=== PATIENT | male | born 1925 | race Caucasian/White ===

== ENCOUNTER 2016-08-05 21:56 | Inpatient (IN) | payer OTHER, MEDICARE ==
[~2016-08-05] VITALS: Ht 175.3 cm; Wt 43.5 kg
--- NOTE | 2016-08-05 22:08 | ED NEURO DEFICIT/STROKE ---
History of Present Illness General Chief Complaint: Neuro Symptoms/ Deficit Stated Complaint: BIBA STROKE?? Source: patient, family, EMS Exam Limitations: clinical condition, confusion Vital Signs & Intake/Output Vital Signs & Intake/Output Vital Signs Date Time Temp Pulse Resp B/P B/P Pulse O2 O2 Flow FiO2 Mean Ox Delivery Rate 08/06 0036 98.0 65 20 170/100 94 Room Air 08/05 2337 73 20 174/93 92 Room Air 08/05 2301 67 157/84 08/05 2255 98.1 67 20 157/84 08/05 2231 98.1 75 20 188/94 97 Room Air ED Intake and Output 08/06 0000 08/05 1200 Intake Total 0 Output Total Balance 0 Intake, Oral 0 Patient 96 lb Weight Weight Estimated Measurement Method SEE TRIAGE (BECKI LAI,JEANINE) Allergies Coded Allergies: No Known Allergies (08/05/16) Reconcile Medications Apixaban (Eliquis) 2.5 MG TABLET 2.5 MG PO BID AFIB Aspirin (Aspirin*) 81 MG TAB.CHEW 81 MG PO DAILY HEART Atorvastatin Calcium 80 MG TABLET 80 MG PO 1700 HEART Lisinopril 20 MG TABLET 20 MG PO DAILY HTN Triage Nurses Notes Reviewed? yes Onset: Abrupt Duration: last known well yesterday Timing: single episode today Severity: mild, moderate New Weakness: LUE, right facial HPI: This is an 89-year-old male with h/o HTN, afib (not anticoagulated), right facial nerve palsy who presents from home by EMS for chief complaint of multiple falls. According to EMS they got a call for a lift assist. EMS reported that he slipped out of bed and his was unable to help him up. When they went to lift him up they noticed Left sided weakness. They wanted to transport the hospital but the patient was refusing. We don't know how long the weakness has been present for. He is awake and alert but oriented only 1. Patient transported to the hospital. C-collar placed in the field. Patient found to be hypertensive. History taking is limited as he is confused. He thinks it is 2009. His at bedside states that his face looks different from baseline. Past History Travel History Traveled to [place] past 21 day No Medical History Any Pertinent Medical History? see below for history Neurological: dementia Cardiovascular: hypertension Psychiatric: anxiety, AGITATION Endocrine: NIDDM Surgical History Surgical History: TUMOR REMOVED LEFT SIDE OF FACE - MELANOMA Psychosocial History Who do you live with Spouse What is your primary language [place] Tobacco Use: Quit >30 days ago ETOH Use: denies use Family History Hx Contributory? No Review of Systems Review of Systems Constitutional: Reports: weakness. EENTM: Reports: no symptoms. Respiratory: Denies: cough, short of breath. Cardiovascular: Denies: chest pain, palpitations. GI: Denies: abdominal pain. Genitourinary: Denies: discharge. Musculoskeletal: Reports: no symptoms. Skin: Reports: no symptoms. Neurological/Psychological: Reports: weakness. Hematologic/Endocrine: Denies: bruising, bleeding, polyuria, polydipsia. Immunologic/Allergic: Reports: no symptoms. All Other Systems: Reviewed and Negative Physical Exam Physical Exam General Appearance: well developed/nourished, alert, awake, mild distress, moderate distress Head: atraumatic Eyes: Bilateral: PERRL. Ears, Nose, Throat: normal ENT inspection, hearing grossly normal Neck: normal inspection, supple, full range of motion Respiratory: normal breath sounds, chest non-tender, no respiratory distress Cardiovascular: irregularly irregular Peripheral Pulses: 2+ radial (R), 2+ radial (L) Gastrointestinal: soft, non-tender Extremities: LEFT ARM ABRASIONS, 4/5 STRENTH LEFT ARM AND LEG RIGHT ARM ABD LEG 5/5 STRENGTH Psychiatric: awake, alert Cranial Nerves: normal hearing, facial asymmetry (RIGHT CHRONIC DROOP) Coordination/Gait: ABN nose to finger (L), GAIT NOT TESTED Motor/Sensory: motor deficit Core Measures CVA/TIA Diagnosis: Yes NIH Stroke Scale: Total 4 Date Last Known Well: 08/04/16 Neurological S/S of CVA: Weakness of Limb Symptom Start Date: 08/05/16 Severe Sepsis Present: No Septic Shock Present: No Progress Differential Diagnosis: intracranial Hem., intracranial mass/tumor, seizure disorder, stroke, tia Plan of Care: Orders Procedure Date/time Status Consistent Carbohydrate 1 08/06 B Active Patient Data 08/06 0049 Active Patient Data 08/06 16 Active Code Status 08/06 0011 Active Admit to inpatient 08/05 2357 Active Vital Signs 08/05 2357 Active URINALYSIS 08/05 2206 Active TROPONIN LEVEL 08/05 2206 Complete PARTIAL THROMBOPLASTIN TIME 08/05 2206 Complete PROTHROMBIN TIME 08/05 2206 Complete COMPREHENSIVE METABOLIC PANEL 08/05 2206 Complete CREATINE PHOSPHOKINASE 08/05 2206 Complete CBC WITHOUT DIFFERENTIAL 08/05 2206 Complete EKG 08/05 2206 Active TYPE & SCREEN (NOT X-MATCH) 08/05 2206 Complete Current Medications Sig/Reji Start time Last Medication Dose Stop Time Status Admin Labetalol HCl 10 MG ONCE ONE 08/06 99 UNVr (Trandate) 08/06 100 Laboratory Tests 08/05/162299: Anion Gap 11, Estimated GFR > 60, BUN/Creatinine Ratio 22.0, Glucose 129 H, Calcium 8.8, Total Bilirubin 0.8, AST 19, ALT 26, Alkaline Phosphatase 67, Creatine Kinase 59, Troponin I 0.02, Total Protein 6.6, Albumin 3.5, Globulin 3.1, Albumin/Globulin Ratio 1.1 08/05/162214: PT 12.5, INR 1.19 H, APTT 35, CBC w Diff NO MAN DIFF REQ, RBC 4.32 L, MCV 98.9 H, MCH 31.7 H, RDW 16.2 H, MPV 8.8, Gran % 56.9, Lymphocytes % 30.1, Monocytes % 10.3 H, Eosinophils % 2.4, Basophils % 0.3, Absolute Granulocytes 5.5, Absolute Lymphocytes 2.9, Absolute Monocytes 1.0 H, Absolute Eosinophils 0.2, Absolute Basophils 0, PUBS MCHC 32.0 L labs, ekg, head ct ordered. iv labetalol, aspirin ordered. (BECKI LAI,JEANINE) Diagnostic Imaging: Viewed by Me: Radiology Read, CT Scan. Discussed w/RAD: Radiology Read, CT Scan. Radiology Impression: PATIENT: KRISTY ROLAND PRESENT AGE: 89 PATIENT ACCOUNT NO: [id number] : [birth year] LOCATION: [facility] ORDERING PHYSICIAN: JEANINE JAUREGUI MD SERVICE DATE: 08/05/16 EXAM TYPE: CAT - CT CERV SPINE WO IV CONTRAST; CT HEAD WO IV CONTRAST EXAMINATION: CT HEAD WITHOUT CONTRAST CLINICAL INFORMATION: Acute stroke , recent fall COMPARISON: [address] scan TECHNIQUE: Contiguous axial imaging was performed from the skull base to vertex without intravenous administration of contrast. In addition , helical noncontrast CT imaging was acquired through the cervical spine and source images were reviewed along with axial reconstructions and sagittal and coronal MPRs. DLP: 1048.44 mGy-cm. FINDINGS: CT HEAD: Metallic density along the right orbit causes streak artifact, somewhat limiting evaluation. There is moderate brain volume loss with associated dilatation of CSF space, age appropriate. There is a left cerebellar encephalomalacia, similar to the prior exam and as the result of an old infarct. There is no evidence of acute intracranial hemorrhage or territorial infarction. No midline shift is seen. Mirza to white matter differentiation is well preserved. No extra-axial fluid collections are identified. The ventricles are normal in size. Patchy areas of chronic small vessel disease noted in the subcortical white matter. The osseous structures and soft tissues are normal. The mastoid air cells are well aerated. Soft tissue density within the left maxillary sinus, representing a mucous retention cyst. CT CERVICAL SPINE: There are advanced multilevel degenerative changes of cervical spine with involvement of the intervertebral disc spaces, facet joints and uncovertebral joints. Narrowing of intervertebral disc spaces seen at C3-C4 through T2-T3 levels. Anterior and posterior degenerative osteophytosis seen, impinging upon the lateral neural foramen at multiple levels. There is coarsening of bony trabeculae of C2 and odontoid process, a chronic finding. There is no acute fracture or dislocation of the cervical spine. The paraspinal soft tissues are unremarkable. The visualized lung apex is are clear. IMPRESSION: 1. No acute intracranial hemorrhage or sign of acute territorial ischemia. 2. Advanced degenerative changes of cervical spine without evidence of acute fracture or dislocation. The findings were reported to the ordering physician, Dr. Jauregui at 10:37 PM on 08/05/2016. DICTATED BY: MIKE ZALDIVAR MD DATE/TIME DICTATED:08/05/162225 [employer] SUPERVISOR:NILAM DATE/TIME TRANSCRIBED:08/05/162225 CONFIDENTIAL, DO NOT COPY WITHOUT APPROPRIATE AUTHORIZATION. <Electronically signed in Other Vendor System> SIGNED BY: MIKE ZALDIVAR MD 08/05/162241 CXR Impression: no acute abnormality Initial ED EKG: AFIB Prior EKG: unchanged Departure Departure Time of Disposition: 2356 Disposition: STILL A PATIENT Condition: Stable Clinical Impression Primary Impression: Hypertension Secondary Impressions: Ataxic gait, Atrial fibrillation, CVA (cerebrovascular accident due to intracerebral hemorrhage), Left-sided weakness Referrals: LAMONT CERVANTES MD Departure Forms: Customer Survey General Discharge Information Prescriptions: Current Visit Scripts Apixaban (Eliquis) 2.5 MG PO BID #60 Atorvastatin Calcium 80 MG PO 1700 #30 Lisinopril 20 MG PO DAILY #30 Aspirin (Aspirin*) 81 MG PO DAILY #30 Admission Note Spoke With: BRYAN CHE MD Documentation of Exam: Documentation of any treatments & extenuating circumstances including Concerns Regarding Discharge (functional status, medication knowledge or non-compliance, living conditions, etc.) that warrant an admission rather than observation: [ TELE MONITOR, NEURO CHECKS, NEUROLOGY CONSULTATION, MONITOR BP, PHYSICAL THERAPY EVALUATION,] Critical Care Note Critical Care Note Critical Care Time: 30-74 min
--- NOTE | 2016-08-05 22:32 | NUR ---
PT BOBA FROM HOME S/P FALL AND NEW ONSET RIGHT SIDED FACIAL DROP AND LEFT ARM WEAKNESS. PER SHE IS NOT AWARE OF THE SPECIFIC TIME OF THE ONSET OF THIS SYMPTOMS. PT IS NOTED TO HAVE LEFT LOWER ARM SKIN TEAR AND LEFT HAND SKIN TEAR. PT IS POOR HISTORIAN SECONDARY TO DEMENTIA. ON ARRIVAL HE WAS PLACED ON CARDIAC MONITORING AND VS WERE OBTAINED AND NOTED TO BE HYPERTENSIVE AT 188/94 MANUALLY. A SECOND IV WAS ESTABLISHED AND TRANSFERED TO CT SCAN. PT ARRIVED WITH C COLLAR.
[2016-08-05 22:33] LABS: ABSOLUTE BASOPHIL COUNT 0 /CUMM (0.0-0.2); ABSOLUTE EOSINOPHIL COUNT 0.2 /CUMM (0.0-0.7); ABSOLUTE GRANULOCYTE CT 5.5 /CUMM (1.4-6.5); ABSOLUTE LYMPH COUNT 2.9 /CUMM (1.2-3.4); BASOPHIL % 0.3 % (0.0-2.0); EOSINOPHIL % 2.4 % (0-5); GRANULOCYTE % 56.9 % (42.2-75.2); HEMATOCRIT 42.8 % (42-52); MEAN CORPUSCULAR HGB 31.7 PG (27.0-31.0); MEAN CORPUSCULAR VOLUME 98.9 FL (80.0-94.0); MEAN PLATELET VOLUME 8.8 FL (7.4-10.4); PLATELET COUNT 188 /CUMM (130-400); RBC DISTRIBUTION WIDTH 16.2 % (11.5-14.5); RED BLOOD CELL CT 4.32 /CUMM (4.70-6.10); WHITE BLOOD CELL COUNT 9.7 /CUMM (4.8-10.8)
[2016-08-05 22:42] LABS: PT 12.5 SEC (9.4-12.5); PTT 35 SEC (25-37)
--- NOTE | 2016-08-05 22:42 | CT SCAN REPORT ---
EXAMINATION: CT HEAD WITHOUT CONTRAST CLINICAL INFORMATION: Acute stroke , recent fall COMPARISON: 10/14/[address] scan TECHNIQUE: Contiguous axial imaging was performed from the skull base to vertex without intravenous administration of contrast. In addition, helical noncontrast CT imaging was acquired through the cervical spine and source images were reviewed along with axial reconstructions and sagittal and coronal MPRs. DLP: 1048.44 mGy-cm. FINDINGS: CT HEAD: Metallic density along the right orbit causes streak artifact, somewhat limiting evaluation. There is moderate brain volume loss with associated dilatation of CSF space, age appropriate. There is a left cerebellar encephalomalacia, similar to the prior exam and as the result of an old infarct. There is no evidence of acute intracranial hemorrhage or territorial infarction. No midline shift is seen. Mirza to white matter differentiation is well preserved. No extra-axial fluid collections are identified. The ventricles are normal in size. Patchy areas of chronic small vessel disease noted in the subcortical white matter. The osseous structures and soft tissues are normal. The mastoid air cells are well aerated. Soft tissue density within the left maxillary sinus, representing a mucous retention cyst. CT CERVICAL SPINE: There are advanced multilevel degenerative changes of cervical spine with involvement of the intervertebral disc spaces, facet joints and uncovertebral joints. Narrowing of intervertebral disc spaces seen at C3-C4 through T2-T3 levels. Anterior and posterior degenerative osteophytosis seen, impinging upon the lateral neural foramen at multiple levels. There is coarsening of bony trabeculae of C2 and odontoid process, a chronic finding. There is no acute fracture or dislocation of the cervical spine. The paraspinal soft tissues are unremarkable. The visualized lung apex is are clear. IMPRESSION: 1. No acute intracranial hemorrhage or sign of acute territorial ischemia. 2. Advanced degenerative changes of cervical spine without evidence of acute fracture or dislocation. The findings were reported to the ordering physician, Dr. Jauregui at 10:37 PM on 08/05/2016.
--- NOTE | 2016-08-05 23:03 | NUR ---
SST REDRAWN AND SENT
--- NOTE | 2016-08-05 23:19 | RADIOLOGY REPORT ---
EXAMINATION: XR PORTABLE CHEST CLINICAL INFORMATION: Multiple falls at home. COMPARISON: Portable chest x-ray 03/27/2015. TECHNIQUE: Portable frontal view of the chest was obtained. FINDINGS: The lungs are well-expanded and clear without focal airspace consolidation. No pleural effusions or pneumothoraces are identified. Cardiomediastinal contours are stable. Soft tissues are unremarkable. No acute osseous abnormality is identified. IMPRESSION: No acute pulmonary process.
--- NOTE | 2016-08-05 23:47 | NUR ---
DR CONNELL IN TO REVIEW POC. ANTICIPATE ADMISSION.
--- NOTE | 2016-08-06 | NUR ---
PT ABLE TO SWALLOW SMALL SIPS OF WATER. PT HAVING DIFFICULTY HOLDING CUP AND NEEDED INSTRUCTION TO PUT CUP TO MOUTH, BUT ABLE TO SWALLOW W/O DIFFICULTY. GIVEN ASA PER EMAR. WENT HOME FOR THE NIGHT. UNABLE TO RECONCILE MEDS AT THIS TIME, STATES HE TAKES 1 BP MED IN THE AM, UNSURE OF THE NAME.
--- NOTE | 2016-08-06 00:55 | NUR ---
MEDICATED WITH ADDITIONAL IVP LABETALOL FOR MANUAL BP 170/100.
--- NOTE | 2016-08-06 01:12 | NUR ---
HOUSESTAFF IN FOR EVAL.
--- NOTE | 2016-08-06 02:01 | History & Physical ---
HUBER LAI,[facility] 08/06/16 0200: General Information and HPI Statement: I have seen and personally examined KRISTY ALAS and documented this H&P. The patient is a 89 year old M who presented with a patient stated chief complaint of [weakness]. Source of Information: patient, old records Exam Limitations: dementia History of Present Illness: Mr. 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 History was obtained from EMS record, patient slipped out of bed and EMS was called by his to help lift him up since she was unable to lift him alone, when they lift him up they noticed Left sided weakness and was brought to ED for evaluation. Patient was alert not orianted x1, denied chest pain, abdominal pain cough. Allergies/Medications Allergies: Coded Allergies: No Known Allergies (08/05/16) Past History Travel History Traveled to [place] past 21 day No Medical History Neurological: dementia Cardiovascular: hypertension Psychiatric: anxiety, AGITATION Endocrine: NIDDM Surgical History Surgical History: TUMOR REMOVED LEFT SIDE OF FACE - MELANOMA Past Family/Social History Psychosocial History ETOH Use: denies use Review of Systems Review of Systems Constitutional: Reports: see HPI. Exam & Diagnostic Data Last 24 Hrs of Vital Signs/I&O Vital Signs Date Time Temp Pulse Resp B/P B/P Pulse O2 O2 Flow FiO2 Mean Ox Delivery Rate 08/06 0326 97.9 81 20 160/80 98 Room Air 08/06 0230 98.2 66 20 160/80 96 Room Air 08/06 0133 64 152/78 08/06 0056 98.0 65 20 170/100 08/06 0036 98.0 65 20 170/100 94 Room Air 08/05 2337 73 20 174/93 92 Room Air 08/05 2301 67 157/84 08/05 2255 98.1 67 20 157/84 08/05 2231 98.1 75 20 188/94 97 Room Air Intake & Output 08/06 0800 / 0000 08/05 1600 Intake Total 0 Output Total Balance 0 Intake, Oral 0 Patient 43.545 kg Weight Weight Estimated Measurement Method Physical Exam General Appearance Alert, Cooperative, No Acute Distress Skin multiple skin lesions over the face Multiple skin laceration over the left UE Skin Temp/Moisture Exam: Warm/Dry HEENT Atraumatic, PERRLA, EOMI, Mucous Membr. moist/pink Neck Supple, No JVD Lymphatic no cervical lymphadenopathy Cardiovascular Normal S1, Normal S2, irregular irregular Systolic murmur 3/5 with max intensity over left 5th intercosal space mid clavicular line Lungs Clear to Auscultation, Normal Air Movement Abdomen Normal Bowel Sounds, Soft, No Tenderness Neurological Normal Speech, Strength at 5/5 X4 Ext, Normal Tone, Sensation Intact, Reflexes 2+, Chronic right facial droop , left arm difficlty raising arm over head on active and passive motions Extremities No Clubbing, No Cyanosis, No Edema, Normal Pulses Assessment/Plan Assessment: Mr. 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 On admission -Vital signs temperature 98.1, pulse 75, blood pressure 188/94, respiratory rate 20 with saturation 97% room air -Labs significant for H&H 15.7/42.8, BUN/creatinine 22/1, troponin 0.02 Images -CT head, cervical spine IMPRESSION: 1. No acute intracranial hemorrhage or sign of acute territorial ischemia. 2. Advanced degenerative changes of cervical spine without evidence of acute fracture or dislocation. -Chest x-ray IMPRESSION: No acute pulmonary process. Problem list #Mechanical fall #Left arm weakness, difficulty raising arm overhead by active and passive motions #Hypertension, hyperlipidemia, diabetes #Atrial fibrillation not on anticoagulation #Chronic right facial droop as a complication of surgical resection of squamous cell cancer Plan -Admit to telemetry for close monitoring -CT head and cervical spine ruled out acute intracranial pathology -Continue aspirin 81 mg daily, statin 40 mg daily -Obtain lipid profile -Obtain hemoglobin A1c -Serial troponin and EKG -Obtain UA and urine culture -Obtain blood culture -Consider left shoulder x-ray -Patient received 2 doses of labetalol 10 mg IV for blood pressure 188/94 on presentation -Monitor blood pressure and heart rate -We will obtain full history from patient's in a.m. including reconciled medication (patient is taking only one medication for blood pressure) -Patient has history of atrial fibrillation not on anticoagulation for history of multiple falls -Swallowing evaluation, PT, OT -DVT prophylaxis Lovenox -Code DNR/DNI -Nothing by mouth for swallowing evaluation As Ranked By This Provider Problem List: 1. ATRIAL FIBRILATION 2. Benign essential hypertension 3. Dementia 4. Left-sided weakness Core Measures/Miscellaneous Acute Coronary Syndrome ACS Diagnosis: No Cerebrovascular Accident CVA/TIA Diagnosis: No Congestive Heart Failure CHF Diagnosis: No Venous Thromboembolism VTE Risk Factors: Age > 40 No [facility] VTE prophylaxis d/t: No contraindications No VTE Pharm Prophylaxis d/t: No contraindications VTE Diagnosis: No VTE Type: NONE VTE Confirmed by (Test): NONE Severe Sepsis Severe Sepsis Present: No Septic Shock Septic Shock Present: No Miscellaneous Documentation Attending Case Discussed With: BRYAN CHE MD Primary Care Physician: UNKNOWN Patient sees these Specialists None Level of Patient Care: Telemetry BRYAN CHE 08/06/16 0503: Attending MD Review Statement Attending Statement Attending MD Statement: examined this patient, discuss w/resident/PA/TEACHER ASSOCIATE, agreed w/resident/PA/TEACHER ASSOCIATE, reviewed EMR data (avail), reviewed images, amended to note Attending Assessment/Plan: CC: S/P fall PMH: DM, HTN, HLD, A. fib, squamous cell carcinoma around cheek S/P excision resulting in the right facial nerve injury and policy, dementia History is limited, secondary to patient's dementia and sundowning, family not bedside. Patient's called in EMS for Marti lift as patient fell down from bed.. When EMS arrived they noticed left upper extremity weakness so they suggested to transfer patient to ER, stroke alert was called. In ER patient had local left upper extremity minimal weakness so we were called for admission. This change was different according to . Vitals: Unremarkable except mildly elevated blood pressure of 170/100 patient received 2 doses of labetalol in ER On exam: Patient is not cooperative for any examination and shouting not to touch him. On gross neurological examination patient has facial pass he on right , strength in bilateral lower extremity intact and right upper extremity, with a 4+/5 strength, in proximal muscle group in left upper extremity, distal muscle strength 5/5 abdomen soft, CVS: S1-S2 irregular, systolic murmur parasternal, RS clear to auscultate bilaterally. No pedal edema. Labs: WBC 9.7, hemoglobin 13.7, hematocrit 42.8, BUN 22, creatinine 1.0, glucose 129, LFT unremarkable, troponin 0.02, INR 1.19 CT cervical spine without IV contrast, CT head without IV contrast: 1. No acute intracranial hemorrhage or sign of acute territorial ischemia. 2. Advanced degenerative changes of cervical spine without evidence of acute fracture or dislocation. CXR: Unremarkable A and P + S/P fall : Unclear etiology, probably accidental, recurrent falls + Left upper extremity minimal weakness: CT head unremarkable, probably local nerve injury versus shoulder pathology. Rule out TIA + HTN : elevated BP + Rule out UTI - Admitted to telemetry - Continue to monitor on telemetry - Serial neuro checks every 6 hours - Continue aspirin and statin - OT PT evaluation in a.m. - Bedside swallow eval - Official swallow in a.m. - Continue home medications - Reconfirm history from in a.m., before obtaining carotid Doppler or MRI for further workup if TIA suspected, as no clear history is available regarding left upper extremity weakness, duration, onset. - Evaluation for short-term rehabilitation, multiple falls at home. GISELA RECINOS 08/06/16 1024: Resident Review Statement Resident Statement: examined this patient, discussed with cisco certified internetwork expert, agreed with cisco certified internetwork expert, discussed with family, reviewed EMR data (avail), amended to note Other Findings: History, vitals, examination, labs and imaging as documented by cisco certified internetwork expert above Problem list #imbalance/ frequent fall of unclear etiology and duration (He was admitted for same problem in the past) #Difficulty raising arm overhead with strong hand insurance job titles which could be 2/2 neurological cause vs joint disease #Hypertension, hyperlipidemia, diabetes #Atrial fibrillation not on anticoagulation #Chronic right facial droop as a complication of surgical resection of squamous cell cancer Plan -Admit to telemetry for close monitoring -Continue aspirin 81 mg daily, statin 40 mg daily -Swallow evaluation -Consider left shoulder x-ray -Monitor blood pressure -Please contact patient's in a.m. for detailed history and for reconciled medications (He is demented we were unable to confirm medications) -Patient has history of atrial fibrillation not on anticoagulation for history of multiple falls -Swallowing evaluation, PT, OT -DVT prophylaxis SC lovenox -Code DNR/DNI -Nothing by mouth for swallowing evaluation
--- NOTE | 2016-08-06 02:36 | NUR ---
ATTEMPTED TO CALL REPORT, NURSE WILL CALL BACK.
--- NOTE | 2016-08-06 03:04 | NUR ---
REPORT TO ROHIT WARD ON [address].
[2016-08-06 03:26] VITALS: BP 160/80
--- NOTE | 2016-08-06 05:27 | Admission Certification ---
Admission Certification Certification Statement - As attending physician, I certify that at the time of - admission, based on clinical presentation, severity of - symptoms, need for further diagnostic testing and - therapeutic interventions, and risk of adverse outcomes - without in-hospital treatment, in my clinical assessment, - this patient requires an acute hospital stay for a minimum - of two nights or longer. I have also considered psychsocial - factors such as support system, advanced age, financial - issues, cognitive issues, and failed out-patient treatments, - past re-admission history, safety of patient, and lack of - compliance as applicable. Specific rationale supporting this admission is: Fall
[2016-08-06 09:34] LABS: ABSOLUTE BASOPHIL COUNT 0 /CUMM (0.0-0.2); ABSOLUTE EOSINOPHIL COUNT 0.2 /CUMM (0.0-0.7); ABSOLUTE GRANULOCYTE CT 5.4 /CUMM (1.4-6.5); ABSOLUTE LYMPH COUNT 1.7 /CUMM (1.2-3.4); ABSOLUTE MONOCYTE COUNT 0.7 /CUMM (0.10-0.60); BASOPHIL % 0.5 % (0.0-2.0); EOSINOPHIL % 2.1 % (0-5); GRANULOCYTE % 67.6 % (42.2-75.2); HEMATOCRIT 39.1 % (42-52); MEAN CORPUSCULAR HGB 32.1 PG (27.0-31.0); MEAN CORPUSCULAR HGB CONC 32.7 G/DL (33.0-37.0); MEAN CORPUSCULAR VOLUME 98.1 FL (80.0-94.0); MEAN PLATELET VOLUME 8.9 FL (7.4-10.4); PLATELET COUNT 150 /CUMM (130-400); RBC DISTRIBUTION WIDTH 16.2 % (11.5-14.5); RED BLOOD CELL CT 3.98 /CUMM (4.70-6.10)
[2016-08-06 11:13] VITALS: BP 154/74
--- NOTE | 2016-08-06 11:34 | PN- Att Addend ---
Attending Addendum Attending Brief Note Patient seen and examined. Resting comfortably not in acute distress. He is alert and oriented 3. He is unaware however he came to the hospital. He denies any pain. Denies chest pain or palpitations. Denies shortness of breath. He admits to falling on and off at home. reports that patient fell at home. She reports that his gait is unsteady but he refuses to use a walker. She reports that he has fallen on several occasions in the past. Vital Signs Date Time Temp Pulse Resp B/P B/P Pulse O2 O2 Flow FiO2 Mean Ox Delivery Rate 08/06 1113 98.1 62 95 154/74 Room Air 08/06 0326 97.9 81 20 160/80 98 Room Air 08/06 0230 98.2 66 20 160/80 96 Room Air 08/06 0133 64 152/78 05/ 0056 98.0 65 20 170/100 05/ 0036 98.0 65 20 170/100 94 Room Air 08/05 2337 73 20 174/93 92 Room Air 08/05 2301 67 157/84 05/ 2255 98.1 67 20 157/84 05/06 2231 98.1 75 20 188/94 97 Room Air Gen. appearance: Elderly male, not in acute distress. Heart: S1-S2 irregular with 3/6 systolic normal. Neck: Right carotid bruit. Lungs: Good general articulately to auscultation Abdomen: Soft, nontender with normal bowel sounds Extremities: No pedal edema Skin: Intact extremities: No pedal edema. Neurologic: He is alert and attentive 3. Power is 5 over 5 bilateral lower extremities and right upper extremities. Range of motion of the left upper extremity is limited as the shoulder. Range of motion is limited even with passive movement. Patient is unable to recall this is new for him. His is of the impression that this is new for the patient. She reports that he fell on that side. He has an extensive right facial droop which is chronic. Laboratory Tests 08/06/16 0930: Urine Color Pending, Urine Clarity Pending, Urine pH Pending, Ur Specific [place] Pending, Urine Protein Pending, Urine Ketones Pending, Urine Nitrite Pending, Urine Bilirubin Pending, Urine Urobilinogen Pending, Ur Leukocyte Esterase Pending, Ur Microscopic Pending, Urine Hemoglobin Pending, Urine Glucose Pending 08/06/16 0735: Anion Gap 7, Estimated GFR > 60, BUN/Creatinine Ratio 22.2, CBC w Diff NO MAN DIFF REQ, RBC 3.98 L, MCV 98.1 H, MCH 32.1 H, RDW 16.2 H, MPV 8.9, Gran % 67.6, Lymphocytes % 21.1, Monocytes % 8.7, Eosinophils % 2.1, Basophils % 0.5, Absolute Granulocytes 5.4, Absolute Lymphocytes 1.7, Absolute Monocytes 0.7 H, Absolute Eosinophils 0.2, Absolute Basophils 0, PUBS MCHC 32.7 L 08/05/16 2300: Anion Gap 11, Estimated GFR > 60, BUN/Creatinine Ratio 22.0, Glucose 129 H, Calcium 8.8, Total Bilirubin 0.8, AST 19, ALT 26, Alkaline Phosphatase 67, Creatine Kinase 59, Troponin I 0.02, Total Protein 6.6, Albumin 3.5, Globulin 3.1, Albumin/Globulin Ratio 1.1 08/05/16 2215: PT 12.5, INR 1.19 H, APTT 35, CBC w Diff NO MAN DIFF REQ, RBC 4.32 L, MCV 98.9 H, MCH 31.7 H, RDW 16.2 H, MPV 8.8, Gran % 56.9, Lymphocytes % 30.1, Monocytes % 10.3 H, Eosinophils % 2.4, Basophils % 0.3, Absolute Granulocytes 5.5, Absolute Lymphocytes 2.9, Absolute Monocytes 1.0 H, Absolute Eosinophils 0.2, Absolute Basophils 0, PUBS MCHC 32.0 L Microbiology 08/06 929 URINE ROUT: Urine Culture - RECD 08/06 0755 BLOOD: Blood Culture - RECD 08/06 0700 BLOOD: Blood Culture - RECD Problems: 1. Status post fall. 2. Left upper extremity weakness; query sequelae of trauma versus stroke. 3. Atrial fibrillation with sinus pause on overnight telemetry and bradycardia in 40s. 4. Uncontrolled hypertension. Plan: -Obtain MRI of the left shoulder to rule out traumatic injury. -Obtain carotid Dopplers, echocardiogram. -Follow-up neurology consultation. Physical therapy evaluation. -Confirmed Patient's home medication regimen with his . In the meantime begin patient on lisinopril 20 mg orally daily for blood pressure control. Monitor closely. -Cardiology evaluation due to the sinus pause noted overnight. Confirm his home med list to determine if he is on any rate control medications. -Awaiting swallow evaluation. Keep nothing by mouth for now. Continue aspirin, statin therapy. DVT prophylaxis with Lovenox.
--- NOTE | 2016-08-06 11:57 | NUR ---
ALEJANDRA IS AWARE OF 2 2.6 SECOND PAUSES. VVS, DOCUMENTED AND REPORTED
--- NOTE | 2016-08-06 14:13 | Cons- Neurology ---
General Information and HPI Consulting Request Date of Consult: 08/06/16 Requested By: BRYAN CHE MD History of Present Illness: History per chart. Patient then unreliable historian. 89-year-old male with history of dementia and multiple vascular risk factors including atrial fibrillation, not anticoagulated due to previous falls, admitted after having fallen from bed with his being unable to lift him. Left-sided weakness was noted. CAT scan of the brain on admission showed no acute abnormalities. 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 Home Smoking Status: Unknown If Ever Smoked ETOH Use: denies use Exam & Diagnostic Data Vital Signs and I&O Vital Signs Date Time Temp Pulse Resp B/P B/P Pulse O2 O2 Flow FiO2 Mean Ox Delivery Rate 08/06 1308 154/74 08/06 1113 98.1 62 95 154/74 Room Air 08/06 0326 97.9 81 20 160/80 98 Room Air 08/06 0230 98.2 66 20 160/80 96 Room Air 08/06 0133 64 152/78 08/06 0056 98.0 65 20 170/100 / 0036 98.0 65 20 170/100 94 Room Air 08/05 2337 73 20 174/93 92 Room Air 08/05 2301 67 157/84 08/05 2255 98.1 67 20 157/84 08/05 2231 98.1 75 20 188/94 97 Room Air Intake & Output 08/06 1600 08/06 0800 08/06 0000 Intake Total 0 Output Total 200 Balance -200 0 Intake, Oral 0 Output, Urine 200 Patient 96 lb Weight Weight Estimated Measurement Method Elderly, frail and asthenic looking white male in no acute distress. He was awake and alert. He could not tell me where he was or why he is here. He could not name the current president. Speech was fluent. There was ptosis O. D. (? Chronic). He was mildly dysarthric. Pupils were equal. Extraocular movements were full. He had a left hemiparesis. Babinski sign was present on the left. The plantar was flexor on the right. The gait was not evaluated. Assessment/Plan Assessment: #1 right hemispheric stroke suspect, not visible on initial CT. With history of atrial fibrillation, this may be embolic. 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 Recommendations: Patient should have formal swallow evaluation prior to initiation of oral feedings. He will need speech, physical and occupational therapy evaluations. DVT precautions should be put into place. For the time being we would use aspirin 81 mg. A statin should also be continued. In all likelihood, he will need a long term facility. Either a follow-up CT without contrast or MRI would be appropriate to clarify and document his presumed, ischemic infarct. Please feel free to call with any further questions. Consult Acknowledgment - Thank you for your consult request.
[2016-08-06 15:45] VITALS: BP 150/82
--- NOTE | 2016-08-06 16:06 | Cons- Cardiology ---
General Information and HPI Consulting Request Date of Consult: 08/06/16 Requested By: BRYAN CHE MD Reason for Consult: Bradycardia History of Present Illness: The patient is an 89-year-old male with history of diabetes mellitus, hypertension, hyperlipidemia, dementia, and atrial fibrillation who was brought in by ambulance after a mechanical fall. The patient is not anticoagulated for his atrial fibrillation because of frequent falls. The patient's diabetic and was unable to get up. EMS was called by his . Upon arrival, he was found to have left-sided weakness, and was brought to the emergency department for evaluation. He is admitted with concern for CVA secondary to left-sided weakness. CT scan of the head does not show any acute abnormality is. He is noted on telemetry to begin atrial fibrillation with episodes of slow ventricular rate. The heart rate drops into the 40s for prolonged periods, and occasionally into the high 30s. He is noted to have pauses up to 2-1/2 seconds. The patient is a poor historian secondary to dementia. He denies chest pain, palpitations, or shortness of breath. Further history is not obtainable. Blood pressure was noted to be elevated in the emergency department, and the patient was given IV labetalol 2 doses Allergies/Medications Allergies: Coded Allergies: No Known Allergies (08/05/16) Current Medications: Current Medications Sig/Reji Start time Last Medication Dose Route Stop Time Status Admin Acetaminophen 650 MG Q6P PRN 08/06 0200 AC PO Aspirin 81 MG DAILY 08/06 1000 AC 08/06 PO 1202 Aspirin 0 .STK-MED ONE 08/06 0002 DC PO Aspirin 325 MG ONCE ONE 08/05 2345 DC 05/ PO 08/05 2346 0000 Atorvastatin Calcium 40 MG 1700 / 1700 AC PO Enoxaparin Sodium 40 MG DAILY 08/07 1000 AC SC Labetalol HCl 10 MG ONCE ONE 08/06 0100 DC / IV 08/06 0101 0056 Labetalol HCl 10 MG ONCE ONE 08/05 2300 DC 05/ IV 08/05 2301 2255 Labetalol HCl 0 .STK-MED ONE 08/05 2300 DC IV Lisinopril 20 MG DAILY 08/06 1223 AC 08/06 PO 1308 Oxycodone/ 1 TAB Q6P PRN 08/06 0200 AC Acetaminophen PO Oxycodone/ 2 TAB Q12P PRN 08/06 0200 AC Acetaminophen PO Patient Medication 1 UNIT ONE NR 08/06 1300 DC Teaching ED 08/06 1330 Sodium Chloride 1,000 ML ONCE ONE 08/06 0615 CAN IV 08/06 1254 Review of Systems Review of Systems: No syncope. No chest pain. No shortness of breath. All other systems were reviewed, and were noted to be negative, however the patient is noted to be a poor historian. 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 Home Smoking Status: Unknown If Ever Smoked ETOH Use: denies use Exam & Diagnostic Data Vital Signs and I&O Vital Signs Date Time Temp Pulse Resp B/P B/P Pulse O2 O2 Flow FiO2 Mean Ox Delivery Rate 08/06 1545 97.4 61 20 150/82 97 Room Air 08/06 1308 154/74 08/06 1113 98.1 62 95 154/74 Room Air 08/06 0326 97.9 81 20 160/80 98 Room Air 08/06 0230 98.2 66 20 160/80 96 Room Air 08/06 0133 64 152/78 08/06 0056 98.0 65 20 170/100 05/07 0036 98.0 65 20 170/100 94 Room Air 08/05 2337 73 20 174/93 92 Room Air 08/05 2301 67 157/84 / 2255 98.1 67 20 157/84 08/05 2231 98.1 75 20 188/94 97 Room Air Intake & Output 08/06 1600 08/06 0800 08/06 0000 08/05 1600 08/05 0800 08/05 0000 Intake Total 300 0 Output Total 200 200 Balance 100 -200 0 Intake, Oral 300 0 Output, Urine 200 200 Patient 96 lb Weight Weight Estimated Measurement Method Physical Exam: Gen: The patient is confused but in no acute distress HEENT: Normal nose, ears, and oropharynx. Pupils equal bilaterally. Conjunctiva normal. Neck: Supple with no JVD, no masses, and no thyromegaly Lungs: Clear to auscultation with normal respiratory effort Heart: Irregularly irregular, S1, S2, 2/6 systolic murmur. No peripheral edema, 2+ pulses in the lower extremities bilaterally Abdomen: Soft, nontender, no masses. No hepatomegaly. No splenomegaly Extremities: No clubbing or cyanosis. Left upper and extremity weakness is noted. Skin: Normal skin turgor with no skin ulcers or lesions noted. Neuro: Cranial nerves intact. Sensation intact Psych: The patient is confused. Affect is depressed. Labs/Sammy Results: Laboratory Tests 08/06 08/06 0930 0735 Chemistry Sodium (137 - 145 mmol/L) 142 Potassium (3.5 - 5.1 mmol/L) 4.3 Chloride (98 - 107 mmol/L) 107 Carbon Dioxide (22 - 30 mmol/L) 28 Anion Gap (5 - 16) 7 BUN (9 - 20 mg/dL) 20 Creatinine (0.7 - 1.2 mg/dL) 0.9 Estimated GFR (>60 ml/min) > 60 BUN/Creatinine Ratio (7 - 25 %) 22.2 Hematology CBC w Diff NO MAN DIFF REQ WBC (4.8 - 10.8 /CUMM) 8.0 RBC (4.70 - 6.10 /CUMM) 3.98 L Hgb (14.0 - 18.0 G/DL) 12.8 L Hct (42 - 52 %) 39.1 L MCV (80.0 - 94.0 FL) 98.1 H MCH (27.0 - 31.0 PG) 32.1 H RDW (11.5 - 14.5 %) 16.2 H Plt Count (130 - 400 /CUMM) 150 MPV (7.4 - 10.4 FL) 8.9 Gran % (42.2 - 75.2 %) 67.6 Lymphocytes % (20.5 - 51.1 %) 21.1 Monocytes % (1.7 - 9.3 %) 8.7 Eosinophils % (0 - 5 %) 2.1 Basophils % (0.0 - 2.0 %) 0.5 Absolute Granulocytes (1.4 - 6.5 /CUMM) 5.4 Absolute Lymphocytes (1.2 - 3.4 /CUMM) 1.7 Absolute Monocytes (0.10 - 0.60 /CUMM) 0.7 H Absolute Eosinophils (0.0 - 0.7 /CUMM) 0.2 Absolute Basophils (0.0 - 0.2 /CUMM) 0 PUBS MCHC (33.0 - 37.0 G/DL) 32.7 L Urines Urine Color (YEL,AMB,STR) YEL Urine Clarity (CLEAR) CLEAR Urine pH (5.0 - 8.0) 6.5 Ur Specific [place] (1.001 - 1.035) 1.025 Urine Protein (NEG,<30 MG/DL) 30 H Urine Ketones (NEG) TRACE H Urine Nitrite (NEG) NEG Urine Bilirubin (NEG) NEG@ICTO Urine Urobilinogen (0.1 - 1.0 EU/dl) 0.2 Ur Leukocyte Esterase (NEG) NEG Ur Microscopic SEDIMENT EXAMINED Urine WBC (0 - 2 /HPF) 5-10 H Ur Epithelial Cells (NONE,FEW) FEW Urine Mucus (FEW,NONE) MANY H Urine Hemoglobin (NEG) NEG Urine Glucose (N MG/DL) NEG 08/05 08/05 2300 2215 Chemistry Sodium (137 - 145 mmol/L) 140 Potassium (3.5 - 5.1 mmol/L) 4.1 Chloride (98 - 107 mmol/L) 101 Carbon Dioxide (22 - 30 mmol/L) 28 Anion Gap (5 - 16) 11 BUN (9 - 20 mg/dL) 22 H Creatinine (0.7 - 1.2 mg/dL) 1.0 Estimated GFR (>60 ml/min) > 60 BUN/Creatinine Ratio (7 - 25 %) 22.0 Glucose (65 - 99 mg/dL) 129 H Calcium (8.4 - 10.2 mg/dL) 8.8 Total Bilirubin (0.2 - 1.3 mg/dL) 0.8 AST (17 - 59 U/L) 19 ALT (21 - 72 U/L) 26 Alkaline Phosphatase (< 127 U/L) 67 Creatine Kinase (55 - 170 U/L) 59 Troponin I (<0.11 ng/ml) 0.02 Total Protein (6.3 - 8.2 g/dL) 6.6 Albumin (3.5 - 5.0 g/dL) 3.5 Globulin (1.9 - 4.2 gm/dL) 3.1 Albumin/Globulin Ratio (1.1 - 2.2 %) 1.1 Coagulation PT (9.4 - 12.5 SEC) 12.5 INR (0.90 - 1.17) 1.19 H APTT (25 - 37 SEC) 35 Hematology CBC w Diff NO MAN DIFF REQ WBC (4.8 - 10.8 /CUMM) 9.7 RBC (4.70 - 6.10 /CUMM) 4.32 L Hgb (14.0 - 18.0 G/DL) 13.7 L Hct (42 - 52 %) 42.8 MCV (80.0 - 94.0 FL) 98.9 H MCH (27.0 - 31.0 PG) 31.7 H RDW (11.5 - 14.5 %) 16.2 H Plt Count (130 - 400 /CUMM) 188 MPV (7.4 - 10.4 FL) 8.8 Gran % (42.2 - 75.2 %) 56.9 Lymphocytes % (20.5 - 51.1 %) 30.1 Monocytes % (1.7 - 9.3 %) 10.3 H Eosinophils % (0 - 5 %) 2.4 Basophils % (0.0 - 2.0 %) 0.3 Absolute Granulocytes (1.4 - 6.5 /CUMM) 5.5 Absolute Lymphocytes (1.2 - 3.4 /CUMM) 2.9 Absolute Monocytes (0.10 - 0.60 /CUMM) 1.0 H Absolute Eosinophils (0.0 - 0.7 /CUMM) 0.2 Absolute Basophils (0.0 - 0.2 /CUMM) 0 PUBS MCHC (33.0 - 37.0 G/DL) 32.0 L Diagnostic Data EKG Results EKG tracing is independently reviewed, and reveals atrial fibrillation with ventricular response of 76, possible anterior infarct age undetermined CXR Results Negative Other Results Head CT: 1. No acute intracranial hemorrhage or sign of acute territorial ischemia. 2. Advanced degenerative changes of cervical spine without evidence of acute fracture or dislocation. The findings were reported to the ordering physician, Dr. Jauregui at 10:37 PM on 08/05/2016. Assessment/Plan Assessment/Plan Assessment: 1. Dementia 2. Chronic atrial fibrillation 3. Hypertension 4. Slow ventricular rate, possibly secondary to IV labetalol 5. Left-sided weakness, possible CVA Plan: * Monitor on telemetry * Avoid further doses of labetalol or other rate control medications given bradycardia * Given possible CVA, would allow blood pressure to be mildly elevated * Agree with aspirin as per neurology * The patient is not anticoagulated because of fall risk. * Continue statin Consult Acknowledgment - Thank you for your consult request.
--- NOTE | 2016-08-06 16:13 | ULTRASOUND REPORT ---
EXAMINATION: US DUPLEX CAROTID AND VERTEBRAL CLINICAL INFORMATION: Left-sided weakness and visual field defect/neglect. Question stroke. COMPARISON: None TECHNIQUE: Real-time ultrasound and Doppler techniques (integrating B-mode 2D vascular images, Doppler spectral analysis and color flow Doppler imaging) were utilized to interrogate the extracranial carotid and vertebral arteries bilaterally. The degree of stenosis determined by criteria similar to NASCET. FINDINGS: The right common carotid artery is patent. There is calcified and noncalcified plaque seen in the right carotid bulb, proximal ICA and ECA. Right common carotid artery peak systolic velocity is 60 cm/s and end-diastolic velocity 3.5 cm/s. There is decreased right ICA peak systolic velocity and end-diastolic velocity. There is a high resistance waveform in the right ICA with reversal of flow during diastole. Waveform is questionable for more distal right ICA stenosis. The right ECA is patent. Antegrade flow is seen in the right vertebral artery. The left common carotid artery is patent. There is calcified and noncalcified plaque seen at the left carotid bulb, left proximal ICA and ECA. Left common carotid peak systolic velocity is 62 cm/s and end-diastolic velocity 12 cm/s. Left ICA peak systolic velocity is 74 cm/s, end-diastolic velocity 23 cm/s suggestive of 0-49% left ICA stenosis. The left ICA waveform is normal. The left ECA is patent. Antegrade flow is seen in the left vertebral artery. IMPRESSION: Significant bilateral calcified and noncalcified plaque. There are decreased velocities and abnormal high resistance waveform in the right ICA questionable for more distal right ICA stenosis. Followup CTA or MRA should be considered. 0-49% left ICA stenosis.
[2016-08-07 00:31] VITALS: BP 138/50
--- NOTE | 2016-08-07 07:29 | PN- Housestaff ---
CHRIS LAI,ALEJANDRA 08/07/16 0728: Subjective Follow-up For: Weakness, left-sided Complaints: pt unable to provide hx Tele-Events Since Last Visit: Atrial fibrillation, with heart rate ranging from 60-89, some PVCs, 2.8 second pause overnight. Of note, he had couple of 2.6 second pauses yesterday as well. Subjective: I followed up and examined the patient today. He is resting comfortably in bed, not in distress. He seems to have a questionable "visual field defect/neglect of the left side" as he could hear my voice but did not turn towards me and was asking where I was speaking from today as well, just like yesterday. His was by the bedside, and explained that he often gets confused and has advanced dementia. Telemetry recordings as noted above, vitals have been otherwise stable, no overnight issues otherwise. Review of Systems Constitutional: Reports: see HPI. Objective Last 24 Hrs of Vital Signs/I&O Vital Signs Date Time Temp Pulse Resp B/P B/P Pulse O2 O2 Flow FiO2 Mean Ox Delivery Rate 08/07 1649 Room Air 08/07 1625 97.7 75 20 152/80 93 Room Air 08/07 1104 77 160/80 05/08 0730 98.1 88 20 158/68 98 Room Air 08/07 0031 98.5 83 20 138/50 93 05/08 0000 96 Room Air Intake & Output 08/07 1600 /08 0800 05/08 0000 Intake Total 30 Output Total 50 225 Balance -20 -225 Intake, Oral 30 Number 0 Bowel Movements Output, Urine 50 225 Patient 43.545 kg Weight Physical Exam General Appearance: Alert, Cooperative, No Acute Distress, not oriented, cachectic Other Physical Findings: Skin: dry/warm, intact Heart: S1-S2 irregular with 3/6 systolic murmur Neck: Right carotid bruit present Lungs: decreased breath sounds b/l Abdomen: Soft, nontender with normal bowel sounds Extremities: No pedal edema Neurologic: He is alert and attentive, Power is 5/5 b/l lower extremities and right upper extremities. Range of motion of the left upper extremity is limited as the shoulder. Range of motion is limited even with passive movement. Patient is unable to recall this is new for him. His is of the impression that this is new for the patient. She reports that he fell on left (same) side. He has an extensive right facial droop (which is chronic due to previous surgery that damaged his nerve per his ). Current Medications: Current Medications Sig/Reji Start time Last Medication Dose Route Stop Time Status Admin Acetaminophen 650 MG Q6P PRN 08/06 0200 AC PO Aspirin 81 MG DAILY 08/06 1000 AC 08/07 PO 1104 Atorvastatin Calcium 80 MG 1700 08/07 1700 AC PO Atorvastatin Calcium 40 MG 1700 08/06 1700 DC 08/06 PO 1621 Enoxaparin Sodium 40 MG DAILY 08/07 1000 AC 08/07 SC 1104 Lisinopril 20 MG DAILY 08/06 1223 AC 08/07 PO 1104 Oxycodone/ 1 TAB Q6P PRN 08/06 0200 AC Acetaminophen PO Oxycodone/ 2 TAB Q12P PRN 08/06 0200 AC Acetaminophen PO Last 24 Hrs of Lab/Sammy Results Last 24 Hrs of Labs/Mics: Laboratory Tests 08/07/16 0645: Anion Gap 9, Estimated GFR > 60, BUN/Creatinine Ratio 22.5, CBC w Diff NO MAN DIFF REQ, RBC 4.23 L, MCV 97.9 H, MCH 32.0 H, RDW 15.8 H, MPV 8.9, Gran % 75.0, Lymphocytes % 15.0 L, Monocytes % 8.8, Eosinophils % 1.0, Basophils % 0.2 , Absolute Granulocytes 7.3 H, Absolute Lymphocytes 1.5, Absolute Monocytes 0.9 H, Absolute Eosinophils 0.1, Absolute Basophils 0, PUBS MCHC 32.7 L Assessment/Plan Assessment: 89-year-old male with past medical history off hypertension, atrial fibrillation not on Coumadin due to repeated fall injuries, diabetes mellitus, hyperlipidemia , 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 EMS was called after he had fallen down and his could not get him back to his chair/bed. Initial history was limited as the patient has severe dementia and no family members were around, vitals in the ED showed blood pressure of 170/100 and he received 2 doses of labetalol. His vitals have been stable since then, but he did have a few episodes of pauses since yesterday. He is currently on telemetry floor for the following issues: #Acute ischemic stroke Patient's clinical condition was highly suspicious for right hemispheric stroke although initial CT did not visualize any bleeding/any acute pathologies. Neurology was consulted who suggested getting an MRI of brain. Doppler ultrasound of carotid arteries earlier done had revealed stenosis of bilateral carotid arteries. MRA was thus ordered as well. -Continue telemetry monitoring -Continue serial neuro checks -Neurology consultation appreciated, will follow -Patient already on statin high-dose, aspirin was added -Awaiting MRI/MRA results -OT/PT evaluation already ordered -Swallow evaluation done, is on pure and honey-thick diet #Left shoulder pain Patient has appears to be chronic left shoulder pain, but also bruise over his left shoulder area. -X-ray has been sent today. Awaiting results. -Consider left shoulder MRI if necessary. #History of Hypertension Patient was initially hypertensive in the ED, but his vitals have been stable on the floors. According any beta blockers as that might decrease his heart rate/ increase the pauses that he has been getting recently. #Diabetes mellitus Continue regular Accu-Cheks, insulin sliding scale and diabetic diet #Malnutrition Patient's BMI is 14.2, it appears cachectic, and has chronic issues that act as hindrance to his nutrition. Acute ischemic stroke can further worsen his condition, thus a nutrition consult has been placed today. Will await for recommendations. #Discharge disposition: Patient will probably require discharge to a short-term/ acute rehabilitation facility given his history of frequent falls and acute ischemic stroke. Of note, he is severely demented at baseline. #Diet is consistent carbohydrate 2 with pure solids and honey thick liquids #DVT prophylaxis with Lovenox #CODE STATUS is DNR/DNI Problem List: 1. Ischemic stroke 2. Atrial fibrillation 3. Malnutrition 4. Dementia Pain Ratin Pain Location: - Pain Goal: Pain 4 or less Pain Plan: prn Tomorrow's Labs & Rationales: BEP to replete lytes if necessary MARTHA LOPEZ MD 08/07/16 9323: Attending Review Statement Attending Statement Attending Statement: examined this patient, discuss w/resident/PA/SOLDER SPRAYER, agreed w/resident/PA/SOLDER SPRAYER, reviewed EMR data (avail), discussed with nursing, discussed with case mgmt, reviewed images, amended to note Attending Assessment/Plan: The patient was seen and discussed with house staff. MRI c/w CVA. Continue therapy and ASA/Atorvastatin (80 mg daily). Will discuss with family. Will need rehab.
[2016-08-07 07:30] VITALS: BP 158/68
[2016-08-07 08:01] LABS: ABSOLUTE BASOPHIL COUNT 0 /CUMM (0.0-0.2); ABSOLUTE EOSINOPHIL COUNT 0.1 /CUMM (0.0-0.7); ABSOLUTE GRANULOCYTE CT 7.3 /CUMM (1.4-6.5); ABSOLUTE LYMPH COUNT 1.5 /CUMM (1.2-3.4); ABSOLUTE MONOCYTE COUNT 0.9 /CUMM (0.10-0.60); BASOPHIL % 0.2 % (0.0-2.0); HEMATOCRIT 41.4 % (42-52); MEAN CORPUSCULAR HGB CONC 32.7 G/DL (33.0-37.0); MEAN CORPUSCULAR VOLUME 97.9 FL (80.0-94.0); MEAN PLATELET VOLUME 8.9 FL (7.4-10.4); PLATELET COUNT 156 /CUMM (130-400); RBC DISTRIBUTION WIDTH 15.8 % (11.5-14.5); RED BLOOD CELL CT 4.23 /CUMM (4.70-6.10); WHITE BLOOD CELL COUNT 9.8 /CUMM (4.8-10.8)
--- NOTE | 2016-08-07 10:41 | PN- Cardiology ---
Subjective Subjective: The patient continues to be somewhat confused. No lightheadedness or dizziness. No chest pain. No palpitations. No diaphoresis. He remains in atrial fibrillation. Ventricular rate noted to drop into the 50s while asleep. Objective Vital Signs and I&Os Vital Signs Date Time Temp Pulse Resp B/P B/P Pulse O2 O2 Flow FiO2 Mean Ox Delivery Rate 08/07 0730 98.1 88 20 158/68 98 Room Air 08/07 0031 98.5 83 20 138/50 93 / 0000 96 Room Air 08/06 1545 97.4 61 20 150/82 97 Room Air 08/06 1308 154/74 08/06 1113 98.1 62 95 154/74 Room Air Intake & Output 08/07 1600 08/07 0800 08/07 0000 08/06 1600 08/06 0808/06 0000 Intake Total 300 0 Output Total 225 200 200 Balance -225 100 -200 0 Intake, Oral 300 0 Output, Urine 225 200 200 Patient 96 lb Weight Weight Estimated Measurement Method Physical Exam: Gen: The patient is confused but in no acute distress HEENT: Normal nose, ears, and oropharynx. Pupils equal bilaterally. Conjunctiva normal. Neck: Supple with no JVD, no masses, and no thyromegaly Lungs: Clear to auscultation with normal respiratory effort Heart: Irregularly irregular, S1, S2, 2/6 systolic murmur. No peripheral edema, 2+ pulses in the lower extremities bilaterally Abdomen: Soft, nontender, no masses. No hepatomegaly. No splenomegaly Extremities: No clubbing or cyanosis. Left upper and extremity weakness is noted. Skin: Normal skin turgor with no skin ulcers or lesions noted. Neuro: Cranial nerves intact. Sensation intact Current Medications: Current Medications Sig/Reji Start time Last Medication Dose Route Stop Time Status Admin Acetaminophen 650 MG Q6P PRN 08/06 0200 AC PO Aspirin 81 MG DAILY 08/06 1000 AC 08/06 PO 1202 Atorvastatin Calcium 40 MG 1700 08/06 1700 AC / PO 1621 Enoxaparin Sodium 40 MG DAILY 08/07 1000 AC SC Lisinopril 20 MG DAILY 08/06 1223 AC 08/06 PO 1308 Oxycodone/ 1 TAB Q6P PRN 08/06 0200 AC Acetaminophen PO Oxycodone/ 2 TAB Q12P PRN 08/06 0200 AC Acetaminophen PO Patient Medication 1 UNIT ONE NR 08/06 1300 PR Teaching ED 08/06 1330 Results Last 48 Hrs of Labs/Mics: Laboratory Tests 08/07/16 0645: Anion Gap 9, Estimated GFR > 60, BUN/Creatinine Ratio 22.5, CBC w Diff NO MAN DIFF REQ, RBC 4.23 L, MCV 97.9 H, MCH 32.0 H, RDW 15.8 H, MPV 8.9, Gran % 75.0, Lymphocytes % 15.0 L, Monocytes % 8.8, Eosinophils % 1.0, Basophils % 0.2 , Absolute Granulocytes 7.3 H, Absolute Lymphocytes 1.5, Absolute Monocytes 0.9 H, Absolute Eosinophils 0.1, Absolute Basophils 0, PUBS MCHC 32.7 L 08/06/16 0930: Urine Color YEL, Urine Clarity CLEAR, Urine pH 6.5, Ur Specific [place] 1.025, Urine Protein 30 H, Urine Ketones TRACE H, Urine Nitrite NEG, Urine Bilirubin NEG@ICTO, Urine Urobilinogen 0.2, Ur Leukocyte Esterase NEG, Ur Microscopic SEDIMENT EXAMINED, Urine WBC 5-10 H, Ur Epithelial Cells FEW, Urine Mucus MANY H, Urine Hemoglobin NEG, Urine Glucose NEG 08/06/16 0735: Anion Gap 7, Estimated GFR > 60, BUN/Creatinine Ratio 22.2, CBC w Diff NO MAN DIFF REQ, RBC 3.98 L, MCV 98.1 H, MCH 32.1 H, RDW 16.2 H, MPV 8.9, Gran % 67.6, Lymphocytes % 21.1, Monocytes % 8.7, Eosinophils % 2.1, Basophils % 0.5, Absolute Granulocytes 5.4, Absolute Lymphocytes 1.7, Absolute Monocytes 0.7 H, Absolute Eosinophils 0.2, Absolute Basophils 0, PUBS MCHC 32.7 L 08/05/16 2300: Anion Gap 11, Estimated GFR > 60, BUN/Creatinine Ratio 22.0, Glucose 129 H, Calcium 8.8, Total Bilirubin 0.8, AST 19, ALT 26, Alkaline Phosphatase 67, Creatine Kinase 59, Troponin I 0.02, Total Protein 6.6, Albumin 3.5, Globulin 3.1, Albumin/Globulin Ratio 1.1 08/05/16 2215: PT 12.5, INR 1.19 H, APTT 35, CBC w Diff NO MAN DIFF REQ, RBC 4.32 L, MCV 98.9 H, MCH 31.7 H, RDW 16.2 H, MPV 8.8, Gran % 56.9, Lymphocytes % 30.1, Monocytes % 10.3 H, Eosinophils % 2.4, Basophils % 0.3, Absolute Granulocytes 5.5, Absolute Lymphocytes 2.9, Absolute Monocytes 1.0 H, Absolute Eosinophils 0.2, Absolute Basophils 0, PUBS MCHC 32.0 L Assessment/Plan Assessment/Plan Assessment: 1. Dementia 2. Chronic atrial fibrillation 3. Hypertension 4. Slow ventricular rate and pauses noted after IV labetalol. Improved with discontinuation of labetalol. 5. Left-sided weakness, possible CVA Plan: * Continue current cardiac medications. * The patient is not anticoagulated because of fall risk. * Avoid beta blockers and other rate control medications * Continue to monitor bradycardia. No indication for pacemaker placement at this time. Continue telemetry? Yes
--- NOTE | 2016-08-07 14:09 | Discharge Summary ---
Visit Information Visit Dates Admission Date: 08/05/16 Discharge Date: 08/09/16 Hospital Course Course Attending Physician: MARTHA LOPEZ MD Primary Care Physician: UNKNOWN Hospital Course: Mr. 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 On admission Physical Exam General Appearance Alert, Cooperative, No Acute Distress Skin multiple skin lesions over the face Multiple skin laceration over the left UE Skin Temp/Moisture Exam: Warm/Dry HEENT Atraumatic, PERRLA, EOMI, Mucous Membr. moist/pink Neck Supple, No JVD Lymphatic no cervical lymphadenopathy Cardiovascular Normal S1, Normal S2, irregular irregular Systolic murmur 3/5 with max intensity over left 5th intercosal space mid clavicular line Lungs Clear to Auscultation, Normal Air Movement Abdomen Normal Bowel Sounds, Soft, No Tenderness Neurological Normal Speech, Strength at 5/5 X4 Ext, Normal Tone, Sensation Intact, Reflexes 2+, Chronic right facial droop , left arm difficlty raising arm over head on active and passive motions Extremities No Clubbing, No Cyanosis, No Edema, Normal Pulses -Vital signs temperature 98.1, pulse 75, blood pressure 188/94, respiratory rate 20 with saturation 97% room air -Labs significant for H&H 15.7/42.8, BUN/creatinine 22/1, troponin 0.02 Images -CT head, cervical spine IMPRESSION: 1. No acute intracranial hemorrhage or sign of acute territorial ischemia. 2. Advanced degenerative changes of cervical spine without evidence of acute fracture or dislocation. -Chest x-ray IMPRESSION: No acute pulmonary process. Admitted to telemetry floor and treated for these medical conditions #Mechanical fall/Left arm weakness, difficulty raising arm overhead by active and passive motions patient underwent MRA MRI of the head which showed Multifocal acute infarcts in the right frontoparietal lobes within the MCA vascular territory, including the basal ganglia.Absence of flow related signal in the right internal carotid artery is age indeterminate and indicative for vascular occlusion. Diminutive flow related signal in the right MCA vasculature from presumed cross-filling via the ACOM segment.Moderate stenoses in the lower basilar artery. Poor flow related signal in the left ORE FEEDER vasculature which is diffusely irregular in caliber. Very little flow related signal in the right ORE FEEDER which is suspected to be subtotally occluded. Patient was put on aspirin,plavix and high dose statin therapy. However eliques was stared and plavix was d'debora. patient was discharged on statin, xavi inhibitor, eliquies and aspirin. #Hypertension, hyperlipidemia, diabetes we continued home medication for hypertension. we put the patient on sliding scale insulin and diabetic diet. no major events were observed. #Atrial fibrillation not on anticoagulation due to mutiple falls, patient is not on any anticoagulation. #Chronic right facial droop as a complication of surgical resection of squamous cell cancer non major event were observed. Allergies: Coded Allergies: No Known Allergies (08/05/16) Disposition Summary Disposition Principal Diagnosis: CVA Additional Diagnosis: HTN Discharge Disposition: SNF Discharge Instructions General Discharge Information Code Status: Do Not Resucitate/Intubat Patient's Diet: Hearth Healthy Patient's Activity: as tolerated Follow-Up Instructions/Appts: -Please follow-up with your primary care provider within 7 days after discharge. -please follow-up with your glove wrapper 7 days after discharge -please follow-up with your neruologist 7 days after discharge -We have made changes to your home medications, please read the instructions carefully. -Please come back to the hospital if your symptoms got worse Medications at Discharge Discharge Medications: Start taking the following new medications: Apixaban (Eliquis) 2.5 MG TABLET 2.5 Milligram ORAL TWICE DAILY Qty = 60 No Refills Comments: Last Taken: 08/09/16 Time: 10 AM Atorvastatin Calcium (Atorvastatin Calcium) 80 MG TABLET 80 Milligram ORAL 5 PM Qty = 30 No Refills Comments: Last Taken: 08/08/16 Time: 5 PM Lisinopril (Lisinopril) 20 MG TABLET 20 Milligram ORAL DAILY Qty = 30 No Refills Comments: Last Taken: 08/09/16 Time: 10 AM Aspirin (Aspirin*) 81 MG TAB.CHEW 81 Milligram ORAL DAILY Qty = 30 No Refills Comments: Last Taken: 08/09/16 Time: 10 AM Copies To: PARMINDER MCFARLANE,HEIDI Montes; ALEJANDRINA LAI,IVY Frances; KEVIN LAI,MADISON Parsons; GABE LAI,ADRIAN Henry MD Review Statement Documenting Attending: MARTHA LOPEZ MD Other Findings: Agree with above plan of care upon discharge.
--- NOTE | 2016-08-07 15:34 | Patient Discharge Instructions ---
Discharge Instructions General Discharge Information You were seen/treated for: CVA Special Instructions: -Please follow-up with your primary care provider within 7 days after discharge. -please follow-up with your senior qa engineer 7 days after discharge -please follow-up with your neruologist 7 days after discharge -We have made changes to your home medications, please read the instructions carefully. -Please come back to the hospital if your symptoms got worse Diet Recommended Diet: Heart Healthy Activity Full Activity/No Limits: Yes (as tolerated) Acute Coronary Syndrome Inclusion Criteria At DC or during hospital stay patient has or had the following: ACS DIAGNOSIS No Discharge Core Measures Meds if any: Prescribed or Continued at Discharge Meds if any: NOT Prescribed or Continued at Discharge Congestive Heart Failure Inclusion Criteria At DC or during hospital stay patient has or had the following: CHF DIAGNOSIS No Discharge Core Measures Meds if any: Prescribed or Continued at Discharge Meds if any: NOT Prescribed or Continued at Discharge Cerebrovascular accident Inclusion Criteria At DC or during hospital stay patient has or had the following: CVA/TIA Diagnosis Yes Discharge Core Measures Meds if any: Prescribed or Continued at Discharge Statin (required if LDL =>70) Yes Anticoagulant Yes Meds if any: NOT Prescribed or Continued at Discharge Venous thromboembolism Inclusion Criteria VTE Diagnosis No VTE Type NONE VTE Confirmed by (Test) NONE Discharge Core Measures - Per Current guidelines, there needs to be overlap - treatment for the first 5 days of Warfarin therapy. - If discharged on Warfarin prior to 5 days of - overlap therapy, the patient will need to be - assessed for post discharge needs including - *Post discharge parental anticoagulation - *Warfarin and/or parental anticoagulation education - *Follow up date to check INR post discharge At least 5 days overlap therapy as Inpatient No Meds if any: Prescribed or Continued at Discharge Note: Overlap Therapy is Warfarin and Anticoagulant Meds if any: NOT Prescribed or Continued at Discharge
[2016-08-07 16:25] VITALS: BP 152/80
--- NOTE | 2016-08-07 16:48 | MRI REPORT ---
EXAMINATION: MR BRAIN WITHOUT CONTRAST MR ANGIOGRAPHY HEAD WITHOUT CONTRAST CLINICAL INFORMATION: Left-sided weakness. Evaluate for vascular pathology or stroke. COMPARISON: Head CT dated 08/05/2016. TECHNIQUE: Multiplanar, multisequence imaging of the brain was obtained without intravenous administration of contrast. 3-D [id number] MR angiography is performed. Multiple 3-D reformatted images are processed on the technologist workstation. Limited study with motion artifacts. FINDINGS: There are multiple subcentimeter foci of restricted diffusion in the right frontoparietal lobes involving the subcortical white matter, centrum semiovale, right maguire radiata, and right basal ganglia. There are additional small areas of acute infarction in the right peritrigonal white matter, right hippocampus, and right occipital lobe. No susceptibility artifact is evident to suggest hemorrhagic conversion of infarcts. There is no hydrocephalus. Moderate chronic white matter microangiopathy is noted. There is a chronic infarct in the inferior left cerebellar hemisphere. Gliosis is noted in the inferior right temporal lobe from a presumed chronic infarct. Moderate generalized parenchymal volume loss is noted. Small chronic lacunar infarcts are visible in the basal ganglia. No extra-axial fluid collections are seen. There is a small chronic infarct in the right parietal lobe posteriorly. The brainstem is normal. Volume loss is noted within the cerebellum. There are degenerative changes of the craniocervical junction. There is loss of the normal right internal carotid artery flow void at the posterior genu of the cavernous segment with a diminutive flow void partially seen in the petrous segment. The marrow signal and midline structures are normal. The dural venous sinus flow voids are maintained. There is a proteinaceous retention cyst along the floor of the left maxillary sinus. The remaining paranasal sinuses are fairly well aerated. There is partial fluid opacification of the dependent right mastoid air cells. MRA of the upper [place] demonstrates a loss of the normal flow related signal in the right internal carotid artery. The left internal carotid artery appears normal. Cross-filling via the ACOM segment provides retrograde flow into the right A1 segment and right MCA vasculature which is otherwise diminutive compared to the left MCA vessels. Remainder of the [place] vasculature appears normal. The left vertebral artery is dominant. There is flow related signal noted within the right vertebral artery. Moderate stenoses are visible in the lower basilar artery. The upper basilar artery is normal in caliber. There is poor flow related signal within the SHAKER TENDER vasculature on the left side. The right SHAKER TENDER is not well visualized. IMPRESSION: Somewhat limited examination with patient motion artifacts. Multifocal acute infarcts in the right frontoparietal lobes within the MCA vascular territory, including the basal ganglia. Additional infarcts in the medial right temporal lobe within the SHAKER TENDER vascular territory. Moderate chronic white matter microangiopathy and diffuse parenchymal volume loss. Encephalomalacia in the inferior right temporal lobe. Chronic infarct in the inferior left cerebellar hemisphere. Small chronic infarct in the right parietal lobe. Absence of flow related signal in the right internal carotid artery is age indeterminate and indicative for vascular occlusion. Diminutive flow related signal in the right MCA vasculature from presumed cross-filling via the ACOM segment. 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 Poor flow related signal in the left SHAKER TENDER vasculature which is diffusely irregular in caliber. Very little flow related signal in the right SHAKER TENDER which is suspected to be subtotally occluded. Imaging findings discussed with Dr. Morales at 4:40 PM on 08/07/2016.
--- NOTE | 2016-08-07 20:47 | RADIOLOGY REPORT ---
EXAMINATION: XR SHOULDER, LEFT CLINICAL INFORMATION: Fall on shoulder. Pain. COMPARISON: None TECHNIQUE: Three views of the left shoulder. FINDINGS: There is osteopenia. No fracture. No dislocation. The glenohumeral joint and acromioclavicular joint are normal. IMPRESSION: Normal left shoulder.
[2016-08-08 00:32] VITALS: BP 160/110
[2016-08-08 02:49] VITALS: BP 148/90
--- NOTE | 2016-08-08 05:54 | PN- Housestaff ---
See Addendum Subjective Follow-up For: CVA Tele-Events Since Last Visit: Afib with HR in 140-150s at 4AM Bradycardia as low as 45 at 830AM Subjective: Patient seen and examined at bedside. He is alert but confused and disorented. Denies any chest pain, dyspnea. SBP was elevated to 160s overnight and pt was given an additional dose of Norvasc 5mg. Review of Systems Constitutional: Reports: see HPI. Objective Last 24 Hrs of Vital Signs/I&O Vital Signs Date Time Temp Pulse Resp B/P B/P Pulse O2 O2 Flow FiO2 Mean Ox Delivery Rate 08/08 0249 74 148/90 08/08 0140 74 160/110 08/08 0032 97.5 78 24 160/110 95 Room Air 08/07 1649 Room Air 08/07 1625 97.7 75 20 152/80 93 Room Air 08/07 1104 77 160/80 08/07 0730 98.1 88 20 158/68 98 Room Air Intake & Output 08/08 0800 08/08 0000 08/07 1600 Intake Total 50 170 30 Output Total 50 Balance 50 170 -20 Intake, IV 20 Intake, Oral 50 150 30 Number 0 0 Bowel Movements Output, Urine 50 Patient 43.545 kg Weight Physical Exam General Appearance: Alert, Cooperative, No Acute Distress Other Physical Findings: Skin: dry/warm, intact Heart: S1-S2 irregular with 3/6 systolic murmur Neck: Right carotid bruit present Lungs: decreased breath sounds b/l Abdomen: Soft, nontender with normal bowel sounds Extremities: No pedal edema Neurologic: He is alert and attentive, Power is 5/5 b/l lower extremities and right upper extremities. Range of motion of the left upper extremity is limited as the shoulder. Range of motion is limited even with passive movement. Patient is unable to recall this is new for him. His is of the impression that this is new for the patient. She reports that he fell on left (same) side. He has an extensive right facial droop (which is chronic due to previous surgery that damaged his nerve per his ). Current Medications: Current Medications Sig/Reji Start time Last Medication Dose Route Stop Time Status Admin Acetaminophen 650 MG Q6P PRN 08/06 0200 AC PO Amlodipine Besylate 5 MG DAILY 08/08 013 DC 08/08 PO 08/08 0131 0140 Aspirin 81 MG DAILY 08/06 1000 AC 08/07 PO 1104 Atorvastatin Calcium 80 MG 1700 08/07 1700 AC 08/07 PO 2128 Atorvastatin Calcium 40 MG 1700 08/06 1700 DC 08/06 PO 1621 Enoxaparin Sodium 40 MG DAILY 08/07 1000 AC 08/07 SC 1104 Lisinopril 20 MG DAILY 08/06 1223 AC 08/07 PO 1104 Oxycodone/ 1 TAB Q6P PRN 08/06 0200 AC Acetaminophen PO Oxycodone/ 2 TAB Q12P PRN 08/06 0200 AC Acetaminophen PO Assessment/Plan Assessment: 89-year-old male with past medical history off hypertension, atrial fibrillation not on Coumadin due to repeated fall injuries, diabetes mellitus, hyperlipidemia , 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 #Acute ischemic stroke - MRI Head: Multifocal acute infarcts in the right frontoparietal lobes within the MCA vascular territory, including the basal ganglia. Additional infarcts in the medial right temporal lobe within the [employer] vascular territory. Moderate chronic white matter microangiopathy and diffuse parenchymal volume loss. Encephalomalacia in the inferior right temporal lobe. Chronic infarct in the inferior left cerebellar hemisphere. Small chronic infarct in the right parietal lobe. Absence of flow related signal in the right internal carotid artery is age indeterminate and indicative for vascular occlusion. Diminutive flow related signal in the right MCA vasculature from presumed cross-filling via the ACOM segment. 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 Poor flow related signal in the left [employer] vasculature which is diffusely irregular in caliber. Very little flow related signal in the right [employer] which is suspected to be subtotally occluded. * Cont aspirin and statin as per neuro rec for now * Start Eliquis 2.5 mg by mouth twice a day as per neuro rec * PT/OT recs appreciated * Swallow eval recs appreciated - currently on pure and honey-thick diet # Bradycardia Patient HR drops to as low as 40s at times. * Cont tele monitoring * Avoid HR lowering agents #Left shoulder pain Patient has appears to be chronic left shoulder pain, but also bruise over his left shoulder area. * X-ray showed a normal left shoulder * Cont to manage pain for now * Consider MRI if pain persists #History of Hypertension Patient was initially hypertensive in the ED, but his vitals have been stable on the floors. * Cont lisinopril 20mg PO daily * Patient received a dose of Norvasc 5mg last night for SBP up to 160 #Diabetes mellitus Continue regular Accu-Cheks, insulin sliding scale and diabetic diet #Malnutrition Patient's BMI is 14.2, it appears cachectic, and has chronic issues that act as hindrance to his nutrition. * Nutrition consulted and recs appreciated #Discharge disposition: Patient will probably require discharge to a short-term/ acute rehabilitation facility given his history of frequent falls and acute ischemic stroke. Of note, he is severely demented at baseline. * Follow PT/OT recs #Diet is consistent carbohydrate 2 with pure solids and honey thick liquids #DVT prophylaxis with Lovenox #CODE STATUS is DNR/DNI Problem List: 1. Malnutrition 2. Ischemic stroke 3. Atrial fibrillation 4. Ataxic gait 5. Left-sided weakness 6. Hypertension Pain Ratin Pain Location: 0 Pain Goal: Remain pain free Pain Plan: Mild pathway Tomorrow's Labs & Rationales: BEP to replete lytes if necessary
[2016-08-08 07:50] VITALS: BP 140/80
--- NOTE | 2016-08-08 10:52 | ECHOCARDIOGRAM REPORT ---
KRISTY ROLAND Age: 89 : 1925 Gender: M Exam Date: 08/07/2016 17:14 Exam Location: [facility] Ht (in): 69 Wt (lb): 96 BSA: 1.43 BP: 160 / 80 Ordering Physician: ALEJANDRA PEREZ MD Referring Physician: Kavon Mcgregor MD Technologist: Richa Singleton RAISA Room Number: [id number] Indications: PRESYNCOPE/SYNCOPE Rhythm: Sinus Technical Quality: Good FINDINGS Left Ventricle Normal size left ventricle. Mild concentric left ventricular hypertrophy. Normal left ventricular ejection fraction visually estimated at >60%. Normal left ventricular wall motion. Right Ventricle Normal right ventricular size and function. Right Atrium Normal right atrial size. Left Atrium Moderate left atrial dilatation. Mitral Valve Mitral valve thickened. Moderate mitral regurgitation. Aortic Valve Diffuse thickening of the aortic valve cusps with reduced excursion. Mild aortic stenosis. Mild aortic regurgitation. Tricuspid Valve Tricuspid valve not well visualized, grossly normal. Mild tricuspid regurgitation. No evidence of pulmonary hypertension. Pulmonic Valve Pulmonic valve not well visualized, grossly normal. Mild pulmonic regurgitation. Pericardium No pericardial effusion. Great Vessels Normal size aortic root. CONCLUSIONS Normal size left ventricle. Mild concentric left ventricular hypertrophy. Normal left ventricular ejection fraction visually estimated at > 60%. Moderate left atrial dilatation. Moderate mitral regurgitation. Diffuse thickening of the aortic valve cusps with reduced excursion. Mild aortic stenosis. Mild aortic regurgitation. Mild tricuspid regurgitation. Mild pulmonic regurgitation. Kavon Mcgregor M.D. (Electronically Signed) Final Date: 08 Aug 2016 10:51 MEASUREMENTS (Male / Female) Normal Values 2D ECHO LV Diastolic Diameter PLAX 5.0 cm 4.2 - 5.9 / 3.9 - 5.3 cm LV Systolic Diameter PLAX 2.9 cm 2.1 - 4.0 cm LV Fractional Shortening PLAX 42.0 % 25 - 46 % LV Ejection Fraction 2D Teich 72.8 % IVS Diastolic Thickness 1.2 cm LVPW Diastolic Thickness 1.2 cm LV Relative Wall Thickness 0.5 RV Internal Dim ED PLAX 2.0 cm 1.9 - 3.8 cm LVOT Diameter 2.1 cm Aortic Root Diameter 2.7 cm LA Systolic Diameter LX 6.5 cm 3.0 - 4.0 / 2.7 - 3.8 cm LA Volume 77.0 cm 18 - 58 / 22 - 52 cm DOPPLER AV Peak Velocity 268.0 cm/s AV Peak Gradient 28.7 mmHg AV Mean Velocity 171.0 cm/s AV Mean Gradient 14.0 mmHg AV Velocity Time Integral 56.3 cm LVOT Peak Velocity 144.0 cm/s LVOT Peak Gradient 8.3 mmHg LVOT Mean Velocity 110.0 cm/s LVOT Mean Gradient 5.0 mmHg LVOT Velocity Time Integral 28.5 cm LVOT Stroke Volume 98.7 cm AV Area Cont Eq vti 1.8 cm AV Area Cont Eq pk 1.9 cm MV Peak Velocity 109.0 cm/s MV Peak Gradient 4.8 mmHg MV Mean Velocity 48.7 cm/s MV Mean Gradient 1.0 mmHg Mitral E Point Velocity 64.7 cm/s MV PHT Velocity 111.0 cm/s MV Deceleration [place] 544.0 cm/s MV Pressure Half Time 61.2 ms MV Area PHT 3.6 cm MV Deceleration Time 218.0 ms TR Peak Velocity 253.0 cm/s TR Peak Gradient 25.6 mmHg Right Atrial Pressure 5.0 mmHg Pulmonary Artery Systolic Pressu 30.6 mmHg Right Ventricular Systolic Press 30.6 mmHg PV Peak Velocity 93.7 cm/s PV Peak Gradient 3.5 mmHg PV Mean Velocity 60.5 cm/s PV Mean Gradient 2.0 mmHg PV Velocity Time Integral 12.2 cm LV E' Lateral Velocity 7.3 cm/s Mitral E to LV E' Lateral Ratio 8.9 LV E' Septal Velocity 4.0 cm/s Mitral E to LV E' Septal Ratio 16.2
--- NOTE | 2016-08-08 11:15 | Event Note ---
Event Note Event Note: Discussed with the neurologist Dr. Angel about the benefit vs. risk for placing the patient on an anticoagulation. Dr. Angel recommended that generally for moderately active/functional patients with h/o Afib and stroke, the risk of recurrent stroke is greater than fall risk and thus the benefit outweighs the risk to anticoagulate the patients. He recommended that anticoagulation be started usually within a week of the stroke. He recommended against starting Plavix as it does not significantly reduce recurrent stroke risk while increasing the bleeding risk. He advised that patient could alternatively be discharged on high dose statin and ASA for now and be re- evaluated for anticoagulation outpatient.
--- NOTE | 2016-08-08 11:45 | PN- Cardiology ---
Subjective Subjective: The patient continues to be confused. His comfortable with no cardiac complaints. No chest pain. No palpitations. No shortness of breath. No diaphoresis. Objective Vital Signs and I&Os Vital Signs Date Time Temp Pulse Resp B/P B/P Pulse O2 O2 Flow FiO2 Mean Ox Delivery Rate 08/08 0830 71 140/80 08/08 0750 97.2 71 20 140/80 95 Room Air 08/08 0249 74 148/90 08/08 0140 74 160/110 08/08 0032 97.5 78 24 160/110 95 Room Air 08/07 1649 Room Air 08/07 1625 97.7 75 20 152/80 93 Room Air Intake & Output 08/08 1600 08/08 0808/08 0000 08/07 1600 08/08 0700 08/07 0000 Intake Total 50 170 30 Output Total 50 225 Balance 50 170 -20 -225 Intake, IV 20 Intake, Oral 50 150 30 Number 0 0 Bowel Movements Output, Urine 50 225 Patient 96 lb Weight Physical Exam: Gen: The patient is confused but in no acute distress HEENT: Normal nose, ears, and oropharynx. Pupils equal bilaterally. Conjunctiva normal. Neck: Supple with no JVD, no masses, and no thyromegaly Lungs: Clear to auscultation with normal respiratory effort Heart: Irregularly irregular, S1, S2, 2/6 systolic murmur. No peripheral edema, 2+ pulses in the lower extremities bilaterally Abdomen: Soft, nontender, no masses. No hepatomegaly. No splenomegaly Extremities: No clubbing or cyanosis. Left upper and extremity weakness is noted. Skin: Normal skin turgor with no skin ulcers or lesions noted. Current Medications: Current Medications Sig/Reji Start time Last Medication Dose Route Stop Time Status Admin Acetaminophen 650 MG Q6P PRN 08/06 0200 AC PO Amlodipine Besylate 5 MG DAILY 08/08 0130 DC 08/08 PO 08/08 0131 0140 Aspirin 81 MG DAILY 08/06 1000 AC 08/08 PO 0930 Atorvastatin Calcium 80 MG 1700 08/07 1700 AC 08/07 PO 2128 Atorvastatin Calcium 40 MG 1700 08/06 1700 DC 08/06 PO 1621 Clopidogrel Bisulfate 75 MG DAILY 08/08 1100 DC PO Clopidogrel Bisulfate 75 MG DAILY 08/08 1000 DC PO Enoxaparin Sodium 40 MG DAILY 08/07 1000 AC 08/08 SC 0930 Lisinopril 20 MG DAILY 08/06 1223 AC 08/08 PO 0930 Oxycodone/ 1 TAB Q6P PRN 08/06 0200 AC Acetaminophen PO Oxycodone/ 2 TAB Q12P PRN 08/06 0200 AC Acetaminophen PO Results Last 48 Hrs of Labs/Mics: Laboratory Tests 08/08/16 0735: Anion Gap 10, Estimated GFR > 60, BUN/Creatinine Ratio 27.5 H, ESR Westergren 6 08/07/16 0645: Anion Gap 9, Estimated GFR > 60, BUN/Creatinine Ratio 22.5, CBC w Diff NO MAN DIFF REQ, RBC 4.23 L, MCV 97.9 H, MCH 32.0 H, RDW 15.8 H, MPV 8.9, Gran % 75.0, Lymphocytes % 15.0 L, Monocytes % 8.8, Eosinophils % 1.0, Basophils % 0.2 , Absolute Granulocytes 7.3 H, Absolute Lymphocytes 1.5, Absolute Monocytes 0.9 H, Absolute Eosinophils 0.1, Absolute Basophils 0, PUBS MCHC 32.7 L Recent Imaging Studies: Echocardiogram: Normal size left ventricle. Mild concentric left ventricular hypertrophy. Normal left ventricular ejection fraction visually estimated at > 60%. Moderate left atrial dilatation. Moderate mitral regurgitation. Diffuse thickening of the aortic valve cusps with reduced excursion. Mild aortic stenosis. Mild aortic regurgitation. Mild tricuspid regurgitation. Mild pulmonic regurgitation. Assessment/Plan Assessment/Plan Assessment: 1. Dementia 2. Chronic atrial fibrillation 3. Hypertension 4. Slow ventricular rate and pauses noted after IV labetalol. Improved with discontinuation of labetalol. 5. Left-sided weakness, possible CVA Plan: * Continue current cardiac medications. * Avoid beta blockers and other rate control medications * The patient is somewhat bradycardic at times, but there is no indication for permanent pacemaker placement. * Neurology recommendations regarding anticoagulation noted. The risk of stroke likely outweighs the fall risk. I would recommend anticoagulation with Eliquis 2.5 mg by mouth twice a day * Continue low-dose aspirin and statin * Follow up 1-2 weeks after discharge. Continue telemetry? Yes
--- NOTE | 2016-08-08 14:43 | PN- Neurology ---
Subjective Subjective: Awake follows simple commands left sided weakness cognitive loss Review of Systems: no headache or vertigo Objective Vital Signs and I&Os Vital Signs Date Time Temp Pulse Resp B/P B/P Pulse O2 O2 Flow FiO2 Mean Ox Delivery Rate 08/08 929 71 140/80 08/08 0750 97.2 71 20 140/80 95 Room Air 08/08 0249 74 148/90 08/08 0140 74 160/110 08/08 0032 97.5 78 24 160/110 95 Room Air 08/07 1649 Room Air 08/07 1625 97.7 75 20 152/80 93 Room Air Intake & Output 08/08 1600 08/08 0800 / 0000 08/07 1600 08/07 0000 Intake Total 480 50 170 30 Output Total 50 225 Balance 480 50 170 -20 -225 Intake, IV 20 Intake, Oral 480 50 150 30 Number 0 0 Bowel Movements Output, Urine 50 225 Patient 96 lb Weight MRI: Multifocal acute infarcts in the right frontoparietal lobes within the MCA vascular territory, including the basal ganglia. Additional infarcts in the medial right temporal lobe within the [employer] vascular territory. Moderate chronic white matter microangiopathy and diffuse parenchymal volume loss. Encephalomalacia in the inferior right temporal lobe. Chronic infarct in the inferior left cerebellar hemisphere. Small chronic infarct in the right parietal lobe. Absence of flow related signal in the right internal carotid artery is age indeterminate and indicative for vascular occlusion. Diminutive flow related signal in the right MCA vasculature from presumed cross-filling via the ACOM segment. 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 Poor flow related signal in the left [employer] vasculature which is diffusely irregular in caliber. Very little flow related signal in the right [employer]ER which is suspected to be subtotally occluded. Imaging findings discussed with Dr. Morales at 4:40 PM on 08/07/2016. U/S IMPRESSION: Significant bilateral calcified and noncalcified plaque. There are decreased velocities and abnormal high resistance waveform in the right ICA questionable for more distal right ICA stenosis. Followup CTA or MRA should be considered. 0-49% left ICA stenosi Current Medications: Current Medications Sig/Reji Start time Last Medication Dose Route Stop Time Status Admin Acetaminophen 650 MG Q6P PRN 08/06 0200 AC PO Amlodipine Besylate 5 MG DAILY 08/08 013 DC 08/08 PO 08/08 013 0140 Apixaban 2.5 MG BID 08/08 1224 AC 08/08 PO 1402 Aspirin 81 MG DAILY 08/06 1000 AC 08/08 PO 0930 Atorvastatin Calcium 80 MG 1700 08/07 1700 AC 08/07 PO 2128 Atorvastatin Calcium 40 [place] 17008/06 1700 DC 08/06 PO 1621 Clopidogrel Bisulfate 75 MG DAILY 08/08 1100 DC PO Clopidogrel Bisulfate 75 MG DAILY 08/08 1000 DC PO Enoxaparin Sodium 40 MG DAILY 08/07 1000 DC 08/08 SC 0930 Lisinopril 20 MG DAILY 08/06 1223 AC 08/08 PO 0930 Oxycodone/ 1 TAB Q6P PRN 08/06 0200 AC Acetaminophen PO Oxycodone/ 2 TAB Q12P PRN 08/06 0200 AC Acetaminophen PO Results Last 24 Hours of Lab Results: Laboratory Tests 08/08 0735 Chemistry Sodium (137 - 145 mmol/L) 140 Potassium (3.5 - 5.1 mmol/L) 4.1 Chloride (98 - 107 mmol/L) 104 Carbon Dioxide (22 - 30 mmol/L) 27 Anion Gap (5 - 16) 10 BUN (9 - 20 mg/dL) 22 H Creatinine (0.7 - 1.2 mg/dL) 0.8 Estimated GFR (>60 ml/min) > 60 BUN/Creatinine Ratio (7 - 25 %) 27.5 H Hematology ESR Westergren (0 - 10 MM) 6 Assessment/Plan Assessment: CVA, ischemic Hx A Fib on anticoagulation consider taking off antiplatelt\et drugs due alina increased bleeding risk Plan: as above
[2016-08-08 17:56] VITALS: BP 136/76
[2016-08-09 00:16] VITALS: BP 138/86
--- NOTE | 2016-08-09 05:54 | PN- Housestaff ---
RIGO LAI,THADDEUS 08/09/16 0554: Subjective Follow-up For: CVA Tele-Events Since Last Visit: Afib with HR 78-94 Subjective: Patient seen and examined at bedside. Patient is hemodynamically stable with stable VS. Remains alert but confused and disorented. Denies any chest pain, dyspnea. No events reported overnight. Review of Systems Constitutional: Reports: see HPI. Objective Last 24 Hrs of Vital Signs/I&O Vital Signs Date Time Temp Pulse Resp B/P B/P Pulse O2 O2 Flow FiO2 Mean Ox Delivery Rate 08/09 0016 98.5 98 18 138/86 95 Room Air 08/08 1756 97.8 80 18 136/76 92 Room Air 08/08 0930 71 140/80 08/08 0750 97.2 71 20 140/80 95 Room Air Intake & Output 08/09 0800 08/09 0000 08/08 1600 Intake Total 0 200 480 Output Total Balance 0 200 480 Intake, IV 0 0 Intake, Oral 0 200 480 Number 0 0 Bowel Movements Physical Exam General Appearance: Alert, Cooperative, No Acute Distress Current Medications: Current Medications Sig/Reji Start time Last Medication Dose Route Stop Time Status Admin Acetaminophen 650 MG Q6P PRN 08/06 0200 AC PO Apixaban 2.5 MG BID 08/08 1224 AC 08/08 PO 2343 Aspirin 81 MG DAILY 08/06 1000 AC 08/08 PO 0930 Atorvastatin Calcium 80 MG 1700 08/07 1700 AC 08/08 PO 1739 Clopidogrel Bisulfate 75 MG DAILY 08/08 1100 DC PO Clopidogrel Bisulfate 75 MG DAILY 08/08 1000 DC PO Enoxaparin Sodium 40 MG DAILY 08/07 1000 DC 08/08 SC 0930 Lisinopril 20 MG DAILY 08/06 1223 AC 08/08 PO 0930 Oxycodone/ 1 TAB Q6P PRN 08/06 0200 AC Acetaminophen PO Oxycodone/ 2 TAB Q12P PRN 08/06 0200 AC Acetaminophen PO Last 24 Hrs of Lab/Sammy Results Last 24 Hrs of Labs/Mics: Laboratory Tests 08/09/16 0630: CBC w Diff Pending, WBC Pending, RBC Pending, Hgb Pending, Hct Pending, MCV Pending, MCH Pending, RDW Pending, Plt Count Pending, MPV Pending, PUBS MCHC Pending 08/08/16 0735: Anion Gap 10, Estimated GFR > 60, BUN/Creatinine Ratio 27.5 H, ESR Westergren 6 Assessment/Plan Assessment: 89-year-old male with past medical history off hypertension, atrial fibrillation not on Coumadin due to repeated fall injuries, diabetes mellitus, hyperlipidemia , 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 #Acute ischemic stroke - MRI Head: Multifocal acute infarcts in the right frontoparietal lobes within the MCA vascular territory, including the basal ganglia. Additional infarcts in the medial right temporal lobe within the [employer] vascular territory. Moderate chronic white matter microangiopathy and diffuse parenchymal volume loss. Encephalomalacia in the inferior right temporal lobe. Chronic infarct in the inferior left cerebellar hemisphere. Small chronic infarct in the right parietal lobe. Absence of flow related signal in the right internal carotid artery is age indeterminate and indicative for vascular occlusion. Diminutive flow related signal in the right MCA vasculature from presumed cross-filling via the ACOM segment. 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 Poor flow related signal in the left [employer] vasculature which is diffusely irregular in caliber. Very little flow related signal in the right [employer] which is suspected to be subtotally occluded. * Cont aspirin and statin as per neuro rec for now * Cont Eliquis 2.5 mg by mouth twice a day as per neuro rec * PT/OT recs appreciated * Swallow eval recs appreciated - currently on pure and honey-thick diet # Bradycardia Patient HR drops to as low as 40s at times. * Cont tele monitoring * Avoid HR lowering agents #Left shoulder pain Patient has appears to be chronic left shoulder pain, but also bruise over his left shoulder area. * X-ray showed a normal left shoulder * Cont to manage pain for now * Consider MRI if pain persists #History of Hypertension Patient was initially hypertensive in the ED, but his vitals have been stable on the floors. * Cont lisinopril 20mg PO daily * Patient received a dose of Norvasc 5mg last night for SBP up to 160 #Diabetes mellitus Continue regular Accu-Cheks, insulin sliding scale and diabetic diet #Malnutrition Patient's BMI is 14.2, it appears cachectic, and has chronic issues that act as hindrance to his nutrition. * Nutrition consulted and recs appreciated #Discharge disposition: Patient will probably require discharge to a short-term/ acute rehabilitation facility given his history of frequent falls and acute ischemic stroke. Of note, he is severely demented at baseline. * Follow PT/OT recs #Diet is consistent carbohydrate 2 with pure solids and honey thick liquids #DVT prophylaxis with Lovenox #CODE STATUS is DNR/DNI Problem List: 1. ATRIAL FIBRILATION 2. Ischemic stroke 3. Malnutrition 4. Ataxic gait 5. Left-sided weakness 6. CVA (cerebrovascular accident due to intracerebral hemorrhage) 7. Hypertension 8. Dementia Pain Ratin Pain Location: 0 Pain Goal: Remain pain free Pain Plan: Mild pathway Tomorrow's Labs & Rationales: BEP to replete lytes if necessary MARTHA LOPEZ MD 08/09/16 1610: Attending MD Review Statement Attending Statement Attending MD Statement: examined this patient, discuss w/resident/PA/COMPUTER SYSTEMS INFORMATION DIRECTOR, agreed w/resident/PA/COMPUTER SYSTEMS INFORMATION DIRECTOR, discussed with family, reviewed EMR data (avail), discussed with nursing, discussed with case mgmt, reviewed images, amended to note Attending Assessment/Plan: The patient was seen and discussed with house staff. CXR and urine negative. Mild increased WBC with no clinical infection. OK to discharge to rehab today.
[2016-08-09] MEDS ORDERED: LISINOPRIL20 M1 PO (06:11)
[2016-08-09] MEDS ORDERED: ELIQUIS2.5 M1 PO (06:11)
[2016-08-09] MEDS ORDERED: ASPIRIN81 M4 PO (06:11)
[2016-08-09] MEDS ORDERED: ATORVASTATIN CA80 M1 PO (06:11)
[2016-08-09 07:49] LABS: ABSOLUTE BASOPHIL COUNT 0 /CUMM (0.0-0.2); ABSOLUTE EOSINOPHIL COUNT 0 /CUMM (0.0-0.7); ABSOLUTE LYMPH COUNT 1.4 /CUMM (1.2-3.4); BASOPHIL % 0.2 % (0.0-2.0); EOSINOPHIL % 0 % (0-5); GRANULOCYTE % 83.3 % (42.2-75.2); HEMATOCRIT 40.6 % (42-52); MEAN CORPUSCULAR HGB CONC 32.8 G/DL (33.0-37.0); MEAN CORPUSCULAR VOLUME 97.3 FL (80.0-94.0); PLATELET COUNT 158 /CUMM (130-400); RED BLOOD CELL CT 4.17 /CUMM (4.70-6.10); WHITE BLOOD CELL COUNT 14.4 /CUMM (4.8-10.8)
[2016-08-09 08:28] VITALS: BP 130/80
--- NOTE | 2016-08-09 09:46 | PN- Cardiology ---
Subjective Subjective: The patient remains alert and confused but without obvious complaints. Objective Vital Signs and I&Os Vital Signs Date Time Temp Pulse Resp B/P B/P Pulse O2 O2 Flow FiO2 Mean Ox Delivery Rate 08/10 0728 98.3 97 20 130/80 96 Room Air 08/09 0016 98.5 98 18 138/86 95 Room Air 08/08 1756 97.8 80 18 136/76 92 Room Air Intake & Output 08/09 0808/09 0000 08/08 1600 08/08 0808/08 0000 Intake Total 0 200 480 50 170 Output Total Balance 0 200 480 50 170 Intake, IV 0 0 20 Intake, Oral 0 200 480 50 150 Number 0 0 0 Bowel Movements Physical Exam: General Appearance Alert, Cooperative, confused, No Acute Distress Skin multiple skin lesions over the face Multiple skin laceration over the left UE HEENT normal Neck Supple, No JVD, carotid shows normal bilaterally Cardiovascular Normal S1, Normal S2, irregular irregular Systolic murmur 3/6 Lungs Clear to Auscultation and percussion bilaterally Abdomen Normal Bowel Sounds, Soft, No Tenderness Neurological Normal/grossly nonfocal; limited left upper extremity range of motion Extremities No Clubbing, No Cyanosis, No Edema, Normal Pulses Current Medications: Current Medications Sig/Reji Start time Last Medication Dose Route Stop Time Status Admin Acetaminophen 650 MG Q6P PRN 08/06 0200 AC PO Apixaban 2.5 MG BID 08/08 1224 AC 08/08 PO 2343 Aspirin 81 MG DAILY 08/06 1000 AC 08/08 PO 0930 Atorvastatin Calcium 80 MG 1700 08/07 1700 AC 08/08 PO 1739 Clopidogrel Bisulfate 75 MG DAILY 08/08 1100 DC PO Clopidogrel Bisulfate 75 MG DAILY 08/08 1000 DC PO Enoxaparin Sodium 40 MG DAILY 08/07 1000 DC 08/08 SC 0930 Lisinopril 20 MG DAILY 08/06 1223 AC 08/08 PO 0930 Oxycodone/ 1 TAB Q6P PRN 08/06 0200 AC Acetaminophen PO Oxycodone/ 2 TAB Q12P PRN 08/06 0200 AC Acetaminophen PO Polyethylene Glycol 17 GM DAILY 08/09 1000 AC PO Senna 187 MG ONCE ONE 08/09 0815 DC PO 08/09 0816 Results Last 48 Hrs of Labs/Mics: Laboratory Tests 08/09/16 0630: CBC w Diff NO MAN DIFF REQ, RBC 4.17 L, MCV 97.3 H, MCH 32.0 H, RDW 16.0 H, MPV 9.0, Gran % 83.3 H, Lymphocytes % 9.5 L, Monocytes % 7.0, Eosinophils % 0, Basophils % 0.2, Absolute Granulocytes 12.0 H, Absolute Lymphocytes 1.4, Absolute Monocytes 1.0 H, Absolute Eosinophils 0, Absolute Basophils 0, PUBS MCHC 32.8 L 08/08/16 0735: Anion Gap 10, Estimated GFR > 60, BUN/Creatinine Ratio 27.5 H, ESR Westergren 6 Assessment/Plan Assessment/Plan Assessment: 1. Dementia 2. Chronic atrial fibrillation 3. Hypertension 4. Slow ventricular rate and pauses noted after IV labetalol. Improved with discontinuation of labetalol. 5. Left-sided weakness, possible CVA Recommendations: -Continue current cardiac medications. -Avoid negative chronotropic medications of possible -No obvious indication for permanent pacemaker at the present time. -The patient should follow-up with Dr. Mcgregor within 2 weeks post discharge. Continue telemetry? Yes
--- NOTE | 2016-08-09 12:19 | RADIOLOGY REPORT ---
EXAMINATION: CHEST 1 VIEW CLINICAL INFORMATION: Leukocytosis. COMPARISON: 08/05/2016. TECHNIQUE: An AP view of the chest is provided. FINDINGS: The cardiac silhouette is not enlarged. The mediastinal and hilar contours are unremarkable. There are neither pleural effusions nor pneumothoraces. There are no consolidations. The osseous structures are unremarkable. IMPRESSION: No evidence for acute disease.
[2016-08-09 12:53] VITALS: BP 130/80
== END 2016-08-09 15:30 | DRG 65 ==
LOC: DELPENDDIS → ERH 21:56 → 1NO 23:57 → ERHI 23:57 → ENRESERV 08-06 01:25 → 1NO 08-06 03:11 → ENPENDDIS 08-09 09:19 → 1NO 08-09 15:30
PROVIDERS: Emergency Medicine; Student in an Organized Health Care Education/Training Program; ADMIT Internal Medicine
DX: I63.9 Cerebral infarction, unspecified (principal); G81.94 Hemiplegia, unspecified affecting left nondominant side; E46 Unspecified protein-calorie malnutrition; I48.2 Chronic atrial fibrillation; R64 Cachexia; F03.90 Unspecified dementia, unspecified severity, without behavioral disturbance, psychotic disturbance, mood disturbance, and anxiety; E11.9 Type 2 diabetes mellitus without complications; Z68.1 Body mass index [BMI] 19.9 or less, adult; I10 Essential (primary) hypertension; E78.5 Hyperlipidemia, unspecified; Z91.81 History of falling; Z85.828 Personal history of other malignant neoplasm of skin; R26.89 Other abnormalities of gait and mobility
CPT/HCPCS: 1NP; 70551; 70555; ERO; 36415; 73030-LT; 81001; 82436; 87040; 87086; 93005; 93010; 93306; 96374; 97110-GO; 97116-GO; 97162-GP; 97530-GO; 99291; J1650; J3490